=== PATIENT | female | born 1945 | race Caucasian/White ===

== ENCOUNTER → 2016-10-01 | Outpatient (CLI) | payer BC ==
[~2016-10-01] MED LIST: ADVIN50/60 INH; ASCO10003 PO; ASPCH81X PO; CHOL1CAP57 PO; CPR500 PO; CYAN10005 PO; FERR325T51 PO; FLUO20CA36 PO; FURO20TA PO; GLIP2.5T11 PO; LOVA20TA4 PO; MCRK20 PO; METF-384 PO; MTR500 PO; MULT-506 PO; POLYSOL OP; SACC250C3 PO; SYN50 PO; TPRSR25 PO
[2016-10-01 15:02] LABS: CHOLESTEROL/HDL RATIO 1.9; THYROID STIMULATING HORMONE 2.5 uIu/ml (0.300-4.500)
[2016-10-02 06:25] LABS: ESTIMATED AVERAGE GLUCOSE 143 mg/dl; HA1C FLAG Normal (Normal)
== END | disposition home or self-care (01) ==
LOC: C.LAB1850 13:35
PROVIDERS: ATTEND Nurse Practitioner Adult Health
DX: E03.9 Hypothyroidism, unspecified (principal); E11.9 Type 2 diabetes mellitus without complications; E78.5 Hyperlipidemia, unspecified

== ENCOUNTER → 2016-11-30 | Outpatient (CLI) | payer BC ==
[2016-11-30 17:12] LABS: THYROID STIMULATING HORMONE 2.79 uIu/ml (0.300-4.500)
== END | disposition home or self-care (01) ==
LOC: C.LAB1850 15:38
PROVIDERS: ATTEND Nurse Practitioner Adult Health
DX: E11.9 Type 2 diabetes mellitus without complications (principal); E03.9 Hypothyroidism, unspecified

== ENCOUNTER → 2017-02-18 | Outpatient (CLI) | payer BC ==
[2017-02-18 13:20] LABS: BASO % 0.6 %; BASO ABS # 0.04 K/uL (0-0.2); COMPLETE YES; EOS % 7.8 %; HEMATOCRIT 33.6 % (37-47); IG% 0.2 %; LYMPH % 23.5 %; LYMPH ABS # 1.54 K/uL (1.2-3.4); MEAN CELL VOLUME 89.6 fL (80-100); MEAN CORPUSCULAR HEMOGLOBIN 28.3 pg (25-34); MEAN CORPUSCULAR HGB CONC 31.5 g/dl (32-36); MEAN PLATELET VOLUME 10.5 fL (7.4-10.4); MONO % 10.2 %; NEUT % 57.7 %; PLATELET COUNT 364 K/uL (130-400); RED BLOOD COUNT 3.75 M/uL (4.2-5.4); WHITE BLOOD COUNT 6.54 K/uL (4.8-10.8)
[2017-02-18 13:34] LABS: URINE APPEARANCE CLEAR (CLEAR); URINE BILIRUBIN NEG (NEG); URINE COLOR YELLOW; URINE NITRITE NEG (NEG); URINE SPECIFIC GRAVITY 1.023 (1.000-1.030); UROBILINOGEN NEG (NEG); ZZUR CULT IF INDIC CLEAN CATCH NO
[2017-02-18 13:43] LABS: MANUAL MICROSCOPIC REQUIRED? NO; REVIEW REQ? NO
[2017-02-18 13:50] LABS: ESTIMATED AVERAGE GLUCOSE 157 mg/dl; HA1C FLAG Normal (Normal)
[2017-02-18 14:16] LABS: URINE TOTAL PROTEIN 9.5 mg/dl (0-11.9)
[2017-02-18 14:17] LABS: BLOOD UREA NITROGEN 21 mg/dl (7-18); BUN/CREATININE RATIO 17.1 (10-20); CALCIUM 9.3 mg/dl (8.5-10.1); CARBON DIOXIDE 25 mmol/L (21-32); CHLORIDE 104 mmol/L (98-107); GLUCOSE 115 mg/dl (70-99); MAGNESIUM 2.3 mg/dl (1.8-2.4); PHOSPHORUS 3.8 mg/dl (2.5-4.9); POTASSIUM 4.7 mmol/L (3.5-5.1); SODIUM 138 mmol/L (136-145)
== END | disposition home or self-care (01) ==
LOC: C.LAB1850 12:06
PROVIDERS: ATTEND Internal Medicine Nephrology
DX: E11.29 Type 2 diabetes mellitus with other diabetic kidney complication (principal); N18.3 Chronic kidney disease, stage 3 (moderate)

== ENCOUNTER → 2017-03-18 | Outpatient (CLI) | payer BC ==
--- NOTE | 2017-03-18 12:10 | DIAGNOSTIC IMAGING REPORT ---
(CHEST) THORAX WITHOUT CLINICAL HISTORY: 71 years-old Female presenting with solitary pulmonary nodule. TECHNIQUE: Multidetector CT imaging of the chest was performed without the use of intravenous contrast. IV contrast: None. COMPARISON: 03/14/2016. CT DOSE: The estimated cumulative dose is 572.46 mGycm. 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 On soft tissue windows, normal thyroid and thoracic inlet. Multiple calcified mediastinal and right hilar lymph nodes likely indicate prior granulomatous disease. No axillary, supraclavicular, hilar, or mediastinal lymphadenopathy. Atherosclerosis of the aortic arch. Normal heart size. Aortic valve and coronary artery calcification. No pericardial or pleural effusion. Bilateral fat-containing Bochdalek hernia. Numerous punctate calcifications throughout the liver and spleen likely indicate prior granulomatous disease. Hyperdensity within the stomach may relate to injection of medication. On lung windows, old calcified granuloma noted in the right lower lobe. Left apical solid 4 mm nodule (series 4 image 42), previously 4 mm. Previously noted right upper lobe nodule has resolved. Few additional punctate nodules. On bone windows, degenerative changes of the thoracic spine. IMPRESSION: 1. Stable 4 mm left upper lobe solid nodule. Follow-up per Fleischner Society 2017 recommendations below. 2. Interval resolution of right upper lobe nodule. 3. Evidence of old granulomatous disease. 4. Hiatal hernia. Please refer to below summary of Fleischner criteria recommendations for follow-up of incidental CT nodules (Rosita Phelan, Guidelines for management of small pulmonary nodules detected on CT scans: A statement from the Fleischner Society, Radiology 237: [phone].) SOLID NODULES Solitary nodule size: <6 mm * Low risk patients: no follow-up needed * high risk patients: optional CT at 12 months Solitary nodule size: 6-8 mm * Low risk patients: follow-up at 6-12 months, then consider further follow-up at 18-24 months * high risk patients: initial follow-up CT at 6-12 months and then at 18-24 months if no change Solitary nodule size: >8 mm * either low or high risk patients - consider follow-up CT at 3 months, and/or CT-PET, and/or biopsy Multiple nodules size: <6 mm * Low risk patients: no routine follow-up * high risk patients: optional CT at 12 months Multiple nodules size: 6-8 mm * Low risk patients: follow-up at 3-6 months, then consider further follow-up at 18-24 months * high risk patients: follow-up at 3-6 months, then at 18-24 months if no change Multiple nodules size: >8 mm * Low risk patients: follow-up at 3-6 months, then consider further follow-up at 18-24 months * high risk patients: follow-up at 3-6 months, then at 18-24 months if no change Note: newly detected indeterminate nodule in persons 35 years of age or older. * Low risk patients: minimal or absent history of smoking and/or other known risk factors * high risk patients: history of smoking or of other known risk factors (e.g. first degree relative with lung cancer, or exposure to asbestos, radon, uranium) * if a nodule up to 8 mm is partly solid or is ground glass further follow-up is required after 24 months to exclude possible slow growing adenocarcinoma ([facility]URA) SUBSOLID NODULES Solitary pure ground-glass nodule * nodule size <6 mm - no CT follow-up required * nodule size >=6 mm - follow-up CT at 6-12 months, then every 2 years until 5 years Solitary part-solid nodule * nodule size <6 mm - no CT follow-up required * nodule size >=6 mm - follow-up CT at 3-6 months. If unchanged, and solid component remains <6 mm, then annual follow-up for 5 years Multiple subsolid nodules * nodule size <6 mm - follow-up CT at 3-6 months, consider further follow-up at 2 and 4 years if stable * nodule size >=6 mm - follow-up CT at 3-6 months, subsequent management based on the most suspicious nodule(s) Electronically signed by: Gera Fontanez M.D. 03/18/2017 12:09 PM Dictated Date/Time: 03/18/2017 12:01 PM
== END | disposition home or self-care (01) ==
LOC: C.CTS 10:05
PROVIDERS: ATTEND Nurse Practitioner Family
DX: R91.1 Solitary pulmonary nodule (principal); K44.9 Diaphragmatic hernia without obstruction or gangrene

== ENCOUNTER → 2017-04-20 | Outpatient (CLI) | payer BC ==
[2017-04-20 15:53] LABS: BLOOD UREA NITROGEN 20 mg/dl (7-18); BUN/CREATININE RATIO 16.5 (10-20); CALCIUM 9.6 mg/dl (8.5-10.1); CARBON DIOXIDE 25 mmol/L (21-32); CHLORIDE 107 mmol/L (98-107); GLUCOSE 151 mg/dl (70-99); POTASSIUM 4.7 mmol/L (3.5-5.1); SODIUM 139 mmol/L (136-145)
[2017-04-20 16:04] LABS: THYROID STIMULATING HORMONE 0.127 uIu/ml (0.300-4.500)
== END | disposition home or self-care (01) ==
LOC: C.LAB1850 14:41
PROVIDERS: ATTEND Nurse Practitioner Family
DX: N18.3 Chronic kidney disease, stage 3 (moderate) (principal); E03.9 Hypothyroidism, unspecified

== ENCOUNTER → 2017-10-21 | Outpatient (CLI) | payer BC ==
--- NOTE | 2017-10-21 13:23 | DIAGNOSTIC IMAGING REPORT ---
LUMBAR SPINE 5 VIEWS HISTORY: Low back pain. Sciatica, unspecified laterality COMPARISON: Lumbar spine 01/15/2016. FINDINGS: There is no fracture. 4 mm of anterolisthesis of L4 and L5, unchanged. Mild disc space narrowing at L4-L5 and moderate to space narrowing at L5-S1. Moderate to severe facet degenerative changes within the lower lumbar spine. IMPRESSION: 1. No acute fractures within the lumbar spine. 2. Stable grade I anterolisthesis of L4 on L5. 3. Degenerative disc disease and facet arthropathy again noted in the lower lumbar spine Electronically signed by: Tony Kimbrough M.D. 10/21/2017 1:22 PM Dictated Date/Time: 10/21/2017 1:19 PM
== END | disposition home or self-care (01) ==
LOC: C.RAD1850 12:59
PROVIDERS: ATTEND Nurse Practitioner Family
DX: M51.16 Intervertebral disc disorders with radiculopathy, lumbar region (principal)

== ENCOUNTER → 2017-11-12 | Outpatient (CLI) | payer BC ==
[2017-11-12 10:40] LABS: ALBUMIN 3.6 gm/dl (3.4-5.0); BLOOD UREA NITROGEN 27 mg/dl (7-18); CALCIUM 9.3 mg/dl (8.5-10.1); CARBON DIOXIDE 25 mmol/L (21-32); CREATININE 1.33 mg/dl (0.60-1.20); GLUCOSE 147 mg/dl (70-99); POTASSIUM 4.8 mmol/L (3.5-5.1); SODIUM 135 mmol/L (136-145)
[2017-11-12 10:41] LABS: PHOSPHORUS 3.7 mg/dl (2.5-4.9)
[2017-11-12 10:53] LABS: HEMOGLOBIN A1C 7.1 % (4.5-5.6)
[2017-11-12 10:53] LABS: BASO % 0.4 %; BASO ABS # 0.03 K/uL (0-0.2); EOS % 6.8 %; EOS ABS # 0.56 K/uL (0-0.5); HEMATOCRIT 37.3 % (37-47); HEMOGLOBIN 12.4 g/dL (12.0-16.0); IG# 0.02 K/uL (0.00-0.02); LYMPH % 19.1 %; LYMPH ABS # 1.57 K/uL (1.2-3.4); MEAN CELL VOLUME 89.7 fL (80-100); MEAN CORPUSCULAR HEMOGLOBIN 29.8 pg (25-34); MEAN CORPUSCULAR HGB CONC 33.2 g/dl (32-36); MEAN PLATELET VOLUME 10.3 fL (7.4-10.4); MONO % 7.5 %; MONO ABS # 0.62 K/uL (0.11-0.59); NEUT ABS # 5.42 K/uL (1.4-6.5); PLATELET COUNT 333 K/uL (130-400); RED CELL DISTRIBUTION WIDTH SD 41.6 fL (36.4-46.3); WHITE BLOOD COUNT 8.22 K/uL (4.8-10.8)
== END | disposition home or self-care (01) ==
LOC: C.LAB1850 08:58
PROVIDERS: ATTEND Internal Medicine Nephrology
DX: N18.3 Chronic kidney disease, stage 3 (moderate) (principal); E78.5 Hyperlipidemia, unspecified; I51.7 Cardiomegaly; I89.0 Lymphedema, not elsewhere classified

== ENCOUNTER → 2018-01-10 | Outpatient (CLI) | payer BC ==
[2018-01-10 12:17] LABS: BASO % 0.3 %; BASO ABS # 0.03 K/uL (0-0.2); EOS % 6.4 %; EOS ABS # 0.55 K/uL (0-0.5); HEMATOCRIT 38.4 % (37-47); HEMOGLOBIN 12.5 g/dL (12.0-16.0); IG# 0.02 K/uL (0.00-0.02); LYMPH % 21.3 %; LYMPH ABS # 1.84 K/uL (1.2-3.4); MEAN CELL VOLUME 88.9 fL (80-100); MEAN CORPUSCULAR HEMOGLOBIN 28.9 pg (25-34); MEAN CORPUSCULAR HGB CONC 32.6 g/dl (32-36); MEAN PLATELET VOLUME 9.5 fL (7.4-10.4); MONO % 7.5 %; MONO ABS # 0.65 K/uL (0.11-0.59); NEUT % 64.3 %; NEUT ABS # 5.54 K/uL (1.4-6.5); PLATELET COUNT 317 K/uL (130-400); RED CELL DISTRIBUTION WIDTH CV 13.5 % (11.5-14.5); RED CELL DISTRIBUTION WIDTH SD 44.4 fL (36.4-46.3); WHITE BLOOD COUNT 8.63 K/uL (4.8-10.8)
[2018-01-10 12:54] LABS: ALBUMIN 3.7 gm/dl (3.4-5.0); BLOOD UREA NITROGEN 28 mg/dl (7-18); CALCIUM 9.7 mg/dl (8.5-10.1); CARBON DIOXIDE 27 mmol/L (21-32); CREATININE 1.21 mg/dl (0.60-1.20); GLUCOSE 125 mg/dl (70-99); POTASSIUM 4.4 mmol/L (3.5-5.1); SODIUM 139 mmol/L (136-145)
[2018-01-10 13:06] LABS: PHOSPHORUS 3.5 mg/dl (2.5-4.9)
== END | disposition home or self-care (01) ==
LOC: C.LAB1850 11:14
PROVIDERS: ATTEND Nurse Practitioner Adult Health
DX: N18.3 Chronic kidney disease, stage 3 (moderate) (principal); E03.9 Hypothyroidism, unspecified

== ENCOUNTER → 2018-03-18 | Outpatient (CLI) | payer BC ==
[2018-03-19 06:53] LABS: HEMOGLOBIN A1C 7.6 % (4.5-5.6)
== END | disposition home or self-care (01) ==
LOC: C.LAB1850 16:03
PROVIDERS: ATTEND Nurse Practitioner Adult Health
DX: E11.29 Type 2 diabetes mellitus with other diabetic kidney complication (principal); E03.9 Hypothyroidism, unspecified

== ENCOUNTER 2021-05-24 19:24 | Observation (INO) ==
[2021-05-24] MEDS ORDERED: ONDANSETRON INJ 2 MG/ML 2 ML VIAL IV STA (20:22)
[2021-05-24] MEDS ORDERED: SODIUM CHLORIDE 0.9% 500 ML IV SCH (20:30)
[2021-05-24] MEDS ORDERED: SODIUM CHLORIDE 0.9% 1000ML 1,000 ML IV SCH (20:30)
[2021-05-24 20:49] LABS: Basophils # (auto) 0.01 K/uL (0-0.2); Basophils % (auto) 0.1 %; Hematocrit (blood only) 39.9 % (37-47); Hemoglobin 13.1 g/dL (12.0-16.0); Immature Granulocytes # (auto) 0.06 K/uL (0.00-0.02); Immature Granulocytes % (auto) 0.3 %; Lymphocytes # (auto) 1.31 K/uL (1.2-3.4); Lymphocytes % (auto) 6.9 %; Mean Corpuscular Hemoglobin 29.7 pg (25-34); Mean Corpuscular Hgb Conc 32.8 g/dL (32-36); Mean Corpuscular Volume 90.5 fL (80-100); Mean Platelet Volume 9.5 fL (7.4-10.4); Monocytes # (auto) 0.65 K/uL (0.11-0.59); Monocytes % (auto) 3.4 %; Neutrophils # (auto) 17.02 K/uL (1.4-6.5); Neutrophils % (auto) 89.3 %; Platelet Count 260 K/uL (130-400); RDW Coefficient of Variation 13.6 % (11.5-14.5); RDW Standard Deviation 45.1 fL (36.4-46.3); Red Blood Count 4.41 M/uL (4.2-5.4); White Blood Count 19.05 K/uL (4.8-10.8)
[2021-05-24 21:07] LABS: Alanine Aminotransferase 17 U/L (12-78); Albumin Level 3.2 gm/dl (3.4-5.0); Aspartate Aminotransferase 16 U/L (15-37); BUN Creatinine Ratio 15.9 (10-20); Blood Urea Nitrogen 22 mg/dl (7-18); Carbon Dioxide 26 mmol/L (21-32); Chloride 102 mmol/L (98-107); Creatinine Clr Calc Pharmacy 40.5 ml/min; Est GFR (African American) 43.4 ml/min; Est GFR (Non-African American) 37.4 ml/min; Glucose 157 mg/dl (70-99); Magnesium 1.8 mg/dl (1.8-2.4); Potassium 3.8 mmol/L (3.5-5.1); Sodium 135 mmol/L (136-145)
[2021-05-24 21:18] LABS: Albumin Globulin Ratio 0.9 (0.9-2); Alkaline Phosphatase 56 U/L (45-117); Bilirubin,Total 0.4 mg/dl (0.2-1); Globulin 3.7 gm/dl (2.5-4.0); Thyroid Stimulating Hormone 0.682 uIu/ml (0.300-4.500); Total Protein 6.9 gm/dl (6.4-8.2); Troponin I < 0.015 ng/ml (0-0.045)
--- NOTE | 2021-05-24 21:19 | XRay Report ---
XR chest 1V portable HISTORY: 75 years-old Female weakness acute weakness COMPARISON: Chest CT 05/12/2018, chest radiographs 03/30/2016 TECHNIQUE: Portable AP view of the chest FINDINGS: Cardiac silhouette is enlarged. Calcified plaque of the thoracic aorta. Calcified subcarinal lymph no gisel with calcified pulmonary granulomata. No pneumothorax, pleural effusion or overt pulmonary edema. Hiatal hernia. Degenerative changes of the shoulders and spine. IMPRESSION: 1. Cardiomegaly without pulmonary edema. 2. Prior granulomatous disease. 3. Hiatal hernia. ACT 112: Negative or not required by law. The above report was generated using voice recognition software. It may contain grammatical, syntax o r spelling errors. Electronically signed by: Srinivas Kent M.D. 05/24/2021 9:17 PM
--- NOTE | 2021-05-24 22:12 | CT Scan Report ---
ABDOMEN AND PELVIS CT WITHOUT CONTRAST CT DOSE: 999.88 mGy.cm HISTORY: Acute vomiting with left lower quadrant abdominal pain vomting, LLQ abd pain TECHNIQUE: Multiaxial CT images of the abdomen and pelvis were performed without contrast. A dose lo wering technique was utilized adhering to the principles of ALARA. COMPARISON STUDY: CT abdomen and pelvis 04/09/2016 FINDINGS: Clear lung bases. No pneumatosis or pneumoperitoneum. Coronary artery calcifications. Trace pericardial effusion. Calcified granulomata of the liver and spleen. Hepatomegaly with hepatic steat osis. Unremarkable gallbladder, pancreas and adrenal glands. Nonspecific bilateral perinephric stranding. No renal or ureteral calculi or hydronephrosis. Mild uri nary bladder wall thickening with partial distention. Pelvic floor relaxation with small cystocele an d rectocele. Atherosclerosis of the aorta without aneurysm. No adenopathy. Large hiatal hernia with trace free fluid in the hernia sac. No bowel obstruction. Colonic diverticul osis. Prior partial sigmoid colon resection with colocolonic anastomosis. No CT evidence of acute div erticulitis. Normal appendix. Trace interloop edema involving a few loops of nondilated small bowel w ithin the left midabdomen. No definite bowel wall thickening. No acute fracture. Degenerative changes of the spine, pelvis and hips. IMPRESSION: 1. No bowel obstruction or bowel wall thickening. Normal appendix. 2. Trace interloop edema involving a few loops of small bowel within the left midabdomen are noted. T his finding in conjunction with the patient history of nausea and vomiting is suggestive of a mild no nspecific enteritis. 3. Colonic diverticulosis without CT evidence of acute diverticulitis. 4. Prior partial sigmoid colon resection with colocolonic anastomosis. 5. Large hiatal hernia. 6. Additional findings as above. ACT 112: Negative or not required by law. The above report was generated using voice recognition software. It may contain grammatical, syntax o r spelling errors. Electronically signed by: Srinivas Kent M.D. 05/24/2021 10:10 PM
[2021-05-24 23:38] LABS: Appearance Urine Clear (Clear); Bacteria Urine Automated Negative (Negative); Bilirubin Urine Negative (Negative); Blood Urine Negative (Negative); Color Urine Yellow; Epithelial Cell Urine Auto >30 /lpf (0-5); Glucose Urine UA 3+ (Negative); Ketones Urine 1+ (Negative); Leukocyte Esterase Urine Trace (Negative); Nitrite Urine Negative (Negative); Protein Urine Negative (Negative); Specific Gravity Urine 1.035 (1.000-1.030); Urobilinogen Urine Negative (Negative); WBC Urine Automated >30 /hpf (0-5)
[2021-05-24] MEDS ORDERED: cefTRIAXone SODIUM 2,000 MG/70 ML BAG IV STA (23:50)
--- NOTE | 2021-05-25 00:19 | Emergency Department Note ---
Impression & Plan Vomiting, Weakness, Leukocytosis, Acute UTI (urinary tract infection), Enteritis ED Provider Note INFORMANT: Patient and ED PROVIDER(S): Dell Chand MD CHIEF COMPLAINT: Illness PLAN: Disposition: Admitted Condition: Good Outpatient prescription management: none Referral: None MEDICAL DECISION MAKING: Patient presented feeling generally ill. She had a work-up obtained. CT imaging shows an enteritis. She had a marked leukocytosis on CBC with left shift on differential. Chemistry panel showed some mild dehydration. Troponin is negative. Chest x-ray did not reveal any acute findings. Urinalysis was somewhat concerning for infection. Patient was hydrated. She was treated with Zofran. Patient was given IV Rocephin. The patient was very unsteady on her feet and generally weak when she was ambulated to the bathroom. She and her feel comfortable going up home at this point and with the leukocytosis and findings on her work-up I believe further management in the hospital is appropriate. Consultation was made with Dr. Nilay Ozuna of the [facility] service. Patient was evaluated in the ER for further management. Triage Nursing notes reviewed and agree them. Vital Signs: reviewed and remarkable for no significant abnormalities Differential diagnosis: Infection, dehydration, metabolic abnormality, hypo/hyperglycemia, electrolyte disturbance, anemia, hypoxia, cardiac sources, intracerebral event, toxicologic, neurologic, as well as other pathologies. Diagnostics interpreted by me: EC Lead ECG performed and revealed Normal sinus rhythym at 82, normal Pollock, QRS normal. No elevation or depression. No PACs or PVCs Cardiac Monitoring: Cardiac monitoring ordered by me: The patient was placed on continuous cardiac monitoring and observed. It revealed a normal sinus rhythm at 84 beats per minute without ectopy or evidence of dysrhythmia. Imaging studies: CT scan and chest x-ray as above. I refer you to the EMR for further details. HPI: The patient is a 75 year old female who presents to the Emergency Room with complaints of illness. This started around 2:00 this morning and is persisting. The patient also notes the following associated symptoms, generalized weakness, vomiting x1, nausea, chills, fatigue and extreme thirst, very mild lower abdominal discomfort. The patient notes her blood sugar has been fluctuating.. The patient has found no relieving factors. Current pain is rated as 2/10. Patient is vaccinated against COVID-19. Pt denies LOC, headache, fevers, diaphoresis, visual changes, neck pain, chest pain, breathing difficulties, back pain, melena, hematochezia, urinary symptoms, numbness, lymphadenopathy, rash, or other complaints. ROS: See above HPI for pertinent positives & negatives. A total of 10 systems reviewed and were otherwise negative. PAST MEDICAL HISTORY:See Below , diabetes PAST SURGICAL HISTORY:See Below, FAMILY HISTORY:See Below SOCIAL HISTORY:See Below, HOME MEDICATIONS:See Below ALLERGIES:See Below VITALS:See Below PHYSICAL EXAMINATION: GENERAL: Awake, alert, mildly ill-appearing, in no distress HENT: Normocephalic, atraumatic. Oropharynx unremarkable. EYES: Normal conjunctiva. Sclera non-icteric. NECK: Inspection normal. Non-tender. Supple. No nuchal rigidity. FROM. No masses. RESPIRATORY: Clear to auscultation. No wheezes. No rales. Normal respiratory effort. CARDIAC: Normal rate. Normal rhythm. No murmurs. No rubs. Extremities warm and well perfused. Pulses equal. No JVD. GI: Soft, non-distended. Very mild suprapubic tenderness to palpation. No rebound or guarding. No masses. RECTAL: Deferred. MUSCULOSKELETAL: Atraumatic. Chest examination reveals no tenderness. The back is symmetrical on inspection without obvious abnormality. There is no CVA tenderness to palpation. No joint edema. LOWER EXTREMITIES: Calves are equal size bilaterally and non-tender. No edema. No discoloration. NEURO: Normal sensorium. No focal sensory or motor deficits noted, generally weak. SKIN: No rash or jaundice noted. Dell Chand MD Past Med/Surg History Medical History (Updated 05/25/21 @ 00:04 by Dell Chand MD) Hypothyroidism Retina disorder Sensorineural hearing loss (SNHL) of both ears Stage III chronic kidney disease Type 2 diabetes mellitus with renal complication Surgical History History of colectomy History of tonsillectomy History of tooth extraction History of tubal ligation Family History Mother Diabetes Grandfather Prostate cancer Denies family history of Ovarian cancer Myocardial infarction Breast cancer Colorectal cancer Social History Smoking Status: Never smoker Second Hand Exposure: Yes; Hx Alcohol Use: Yes Alcohol type: hard liquor Alcohol Intake Frequency: Monthly or Less Hx Substance Use: No Preferred Language: Comoran Communication Ability: Effective Visual Impairment: No Limitations Hearing Ability: Normal marital status: Current Living Situation: Spouse and Family Current Living Situation Comment: w/ spuse and son and family current occupational status: retired Feels Safe at Home: Yes Childhood Exposure to Second-Hand Smoke: Yes Dental Care, Regularly: Yes Physical Activity Frequency: Other Physical Activity Frequency Comment: irregular exercise Seatbelt Use: always Sunscreen Use: No Do you think of yourself as: straight/heterosexual Allergies Allergies Allergy/AdvReac Type Severity Reaction Status Date / Time prednisone Allergy Difficulty Unverified 05/24/21 20:43 Breathing/ Rash ciprofloxacin AdvReac Intermediate Nausea and Verified 05/24/21 20:43 vomiting metronidazole AdvReac Intermediate Nausea and Verified 05/24/21 20:43 vomiting Home Meds Home Medications Medication Instructions Recorded Confirmed polyvinyl alcohol 1.4 % eye drops 1 drp OP UD ml 03/09/19 05/24/21 cholecalciferol (vitamin D3) 25 1,000 units PO QDD cap 04/17/19 05/24/21 mcg (1,000 unit) capsule cyanocobalamin (vitamin B-12) 1,000 mcg PO QAM tab 04/17/19 05/24/21 1,000 mcg tablet ferrous sulfate 325 mg (65 mg 325 mg PO QAM tab 04/17/19 05/24/21 iron) tablet,delayed release insulin aspart U-100 100 unit/mL 2 - 4 unit SUBCUT WM ml 10/18/20 05/24/21 (3 mL) subcutaneous pen (Novolog Flexpen U-100 Insulin aspart) insulin degludec 100 unit/mL (3 16 - 18 unit SQ DAILY ml 10/18/20 05/24/21 mL) subcutaneous pen (Tresiba FlexTouch U-100 insulin) fexofenadine 60 mg-pseudoephedrine 1 tab PO Q12H PRN 11/14/20 05/24/21 ER 120 mg tablet,ext.release,12 hr (Genia-D 12 Hour) One-A-Day Women's 50 Plus 1 tab PO QAM 05/24/21 05/24/21 amlodipine 5 mg tablet 5 mg PO QAM 05/24/21 05/24/21 ascorbic acid (vitamin C) 500 mg 500 mg PO QAM 05/24/21 05/24/21 tablet aspirin 81 mg tablet,delayed 81 mg PO QAM 05/24/21 05/24/21 release (Aspirin Low Dose) empagliflozin 25 mg tablet 25 mg PO QAM 05/24/21 05/24/21 (Jardiance) levothyroxine 25 mcg tablet 25 mcg PO QAM 05/24/21 05/24/21 simvastatin 10 mg tablet 10 mg PO QAM 05/24/21 05/24/21 Previous Rx's Medication Instructions Recorded Novofine 32 32 gauge x 1/4" needle #200 ea NS 07/07/19 (pen needle, diabetic) OneTouch Ultra Blue Test Strip #300 ea NS 04/25/20 (blood sugar diagnostic) metformin 500 mg tablet 1,000 mg PO BID 90 Days #360 tab 09/13/20 fluticasone 250 mcg-salmeterol 50 1 inh INHALATION BID #180 ea 09/23/20 mcg/dose blistr powdr for inhalation (Wixela Inhub) ketoconazole 2 % topical cream 1 applic TOPICAL BID PRN #1 g 09/23/20 flash glucose sensor (FreeStyle #1 ea 10/22/20 Paige 2 Sensor) FreeStyle Paige 2 [place] (flash #1 ea NS 12/31/20 glucose scanning reader) apixaban 5 mg tablet 5 mg PO BID #180 tab 04/08/21 metoprolol succinate 50 mg 50 mg PO HS #90 tab 05/02/21 tablet,extended release 24 hr Results & Data (ED) Vital Signs Vital Signs - 24 hr 05/24/21 19:27 05/24/21 21:00 05/24/21 21:16 Temperature 37.1 C Temperature Source Temporal Artery Scan Pulse Rate 88 Pulse Rate [Finger] 79 Pulse Rate from SpO2 Sensor Respiratory Rate 20 20 Blood Pressure 116/65 Blood Pressure [Left Arm] 110/55 L Blood Pressure Mean 82 Blood Pressure Mean [Left Arm] 73 Blood Pressure Position Sitting Pulse Oximetry 95 94 94 Oxygen Delivery Method Room Air Room Air Room Air Oxygen Flow Rate Sepsis Recent Fever Within 48 Hours No Sepsis New/Unexplained Change in Mental Status N/A Sepsis Action Taken by Nursing No Action Required 05/24/21 21:32 05/24/21 22:00 05/24/21 22:30 Temperature Temperature Source Pulse Rate 84 87 87 Pulse Rate [Finger] Pulse Rate from SpO2 Sensor 84 87 89 Respiratory Rate 30 H 20 26 H Blood Pressure 134/76 139/69 Blood Pressure [Left Arm] Blood Pressure Mean 95 92 Blood Pressure Mean [Left Arm] Blood Pressure Position Pulse Oximetry 93 91 Oxygen Delivery Method Oxygen Flow Rate Sepsis Recent Fever Within 48 Hours Sepsis New/Unexplained Change in Mental Status Sepsis Action Taken by Nursing 05/24/21 23:00 05/24/21 23:30 05/25/21 00:02 Temperature Temperature Source Pulse Rate 84 Pulse Rate [Finger] Pulse Rate from SpO2 Sensor 85 82 79 Respiratory Rate 28 H 24 23 Blood Pressure 112/62 110/59 L Blood Pressure [Left Arm] Blood Pressure Mean 78 76 Blood Pressure Mean [Left Arm] Blood Pressure Position Pulse Oximetry 92 96 95 Oxygen Delivery Method Nasal Cannula Nasal Cannula Oxygen Flow Rate 2 2 Sepsis Recent Fever Within 48 Hours Sepsis New/Unexplained Change in Mental Status Sepsis Action Taken by Nursing Laboratory Data Result diagrams: 05/24/21 20:37 05/24/21 20:37 Lab Results 05/24/21 05/24/21 05/24/21 Range/Units 20:37 20:37 20:56 WBC 19.05 H (4.8-10.8) K/uL RBC 4.41 (4.2-5.4) M/uL Hgb 13.1 (12.0-16.0) g/dL Hct 39.9 (37-47) % MCV 90.5 (80-100) fL MCH 29.7 (25-34) pg MCHC 32.8 (32-36) g/dL RDW Std Deviation 45.1 (36.4-46.3) fL RDW Coeff of Juan 13.6 (11.5-14.5) % Plt Count 260 (130-400) K/uL MPV 9.5 (7.4-10.4) fL Immature Gran % (Auto) 0.3 % Neut % (Auto) 89.3 % Lymph % (Auto) 6.9 % Parker % (Auto) 3.4 % Eos % (Auto) 0.0 % Baso % (Auto) 0.1 % Neut # (Auto) 17.02 H (1.4-6.5) K/uL Lymph # (Auto) 1.31 (1.2-3.4) K/uL Parker # (Auto) 0.65 H (0.11-0.59) K/uL Eos # (Auto) 0.00 (0-0.5) K/uL Baso # (Auto) 0.01 (0-0.2) K/uL Immature Gran # (Auto) 0.06 H (0.00-0.02) K/uL Sodium 135 L (136-145) mmol/L Potassium 3.8 (3.5-5.1) mmol/L Chloride 102 (98-107) mmol/L Carbon Dioxide 26 (21-32) mmol/L Anion Gap 7.0 (3-11) BUN 22 H (7-18) mg/dl Creatinine 1.36 H (0.6-1.2) mg/dl Est Cr Clr Drug Dosing 40.5 ml/min Est GFR ( Amer) 43.4 ml/min Est GFR (Non-Af Amer) 37.4 ml/min BUN/Creatinine Ratio 15.9 (10-20) Glucose 157 H (70-99) mg/dl Calcium 9.0 (8.5-10.1) mg/dl Magnesium 1.8 (1.8-2.4) mg/dl Total Bilirubin 0.4 (0.2-1) mg/dl AST 16 (15-37) U/L ALT 17 (12-78) U/L Alkaline Phosphatase 56 (45-117) U/L Troponin I < 0.015 (0-0.045) ng/ml Total Protein 6.9 (6.4-8.2) gm/dl Albumin 3.2 L (3.4-5.0) gm/dl Globulin 3.7 (2.5-4.0) gm/dl Albumin/Globulin Ratio 0.9 (0.9-2) TSH 0.682 (0.300-4.500) uIu/ml Urine Color Urine Appearance (Clear) Urine pH (4.5-7.5) Ur Specific Paradis (1.000-1.030) Urine Protein (Negative) Urine Glucose (UA) (Negative) Urine Ketones (Negative) Urine Blood (Negative) Urine Nitrite (Negative) Urine Bilirubin (Negative) Urine Urobilinogen (Negative) Ur Leukocyte Esterase (Negative) Urine WBC (Auto) (0-5) /hpf Urine RBC (Auto) (0-4) /hpf U Hyaline Cast (Auto) (0-5) /lpf U Epithel Cells (Auto) (0-5) /lpf Urine Bacteria (Auto) (Negative) COVID-19 Eval Order Covid19 at [facility] SARS-CoV-2 (PCR) (Negative) 05/24/21 05/24/21 Range/Units 20:56 22:55 WBC (4.8-10.8) K/uL RBC (4.2-5.4) M/uL Hgb (12.0-16.0) g/dL Hct (37-47) % MCV (80-100) fL MCH (25-34) pg MCHC (32-36) g/dL RDW Std Deviation (36.4-46.3) fL RDW Coeff of Juan (11.5-14.5) % Plt Count (130-400) K/uL MPV (7.4-10.4) fL Immature Gran % (Auto) % Neut % (Auto) % Lymph % (Auto) % Parker % (Auto) % Eos % (Auto) % Baso % (Auto) % Neut # (Auto) (1.4-6.5) K/uL Lymph # (Auto) (1.2-3.4) K/uL Parker # (Auto) (0.11-0.59) K/uL Eos # (Auto) (0-0.5) K/uL Baso # (Auto) (0-0.2) K/uL Immature Gran # (Auto) (0.00-0.02) K/uL Sodium (136-145) mmol/L Potassium (3.5-5.1) mmol/L Chloride (98-107) mmol/L Carbon Dioxide (21-32) mmol/L Anion Gap (3-11) BUN (7-18) mg/dl Creatinine (0.6-1.2) mg/dl Est Cr Clr Drug Dosing ml/min Est GFR ( Amer) ml/min Est GFR (Non-Af Amer) ml/min BUN/Creatinine Ratio (10-20) Glucose (70-99) mg/dl Calcium (8.5-10.1) mg/dl Magnesium (1.8-2.4) mg/dl Total Bilirubin (0.2-1) mg/dl AST (15-37) U/L ALT (12-78) U/L Alkaline Phosphatase (45-117) U/L Troponin I (0-0.045) ng/ml Total Protein (6.4-8.2) gm/dl Albumin (3.4-5.0) gm/dl Globulin (2.5-4.0) gm/dl Albumin/Globulin Ratio (0.9-2) TSH (0.300-4.500) uIu/ml Urine Color Yellow Urine Appearance Clear (Clear) Urine pH 5.0 (4.5-7.5) Ur Specific Paradis 1.035 H (1.000-1.030) Urine Protein Negative (Negative) Urine Glucose (UA) 3+ H (Negative) Urine Ketones 1+ H (Negative) Urine Blood Negative (Negative) Urine Nitrite Negative (Negative) Urine Bilirubin Negative (Negative) Urine Urobilinogen Negative (Negative) Ur Leukocyte Esterase Trace H (Negative) Urine WBC (Auto) >30 H (0-5) /hpf Urine RBC (Auto) 5-10 H (0-4) /hpf U Hyaline Cast (Auto) 1-5 (0-5) /lpf U Epithel Cells (Auto) >30 H (0-5) /lpf Urine Bacteria (Auto) Negative (Negative) COVID-19 Eval Order SARS-CoV-2 (PCR) NEGATIVE (Negative) Administered Medications Sodium Chloride (Nss 1000ml) 1,000 mls @ 125 mls/hr IV .Q8H JORGE Stop: 05/25/21 04:29 Last Admin: 05/24/21 21:36 Dose: 125 mls/hr Documented by: [id number] Ceftriaxone Sodium (Rocephin) 2,000 mg in 70 mls @ 140 mls/hr IV NOW STA Stop: 05/25/21 00:19 Last Admin: 05/25/21 00:05 Dose: 140 mls/hr Documented by: [id number] Discontinued Medications Sodium Chloride (Nss) 500 mls @ 999 mls/hr IV .Q31M JORGE Stop: 05/24/21 21:00 Last Infusion: 05/24/21 21:28 Dose: 0 mls/hr Documented by: [id number] Admin: 05/24/21 20:48 Dose: 999 mls/hr Documented by: [id number] Ondansetron HCl (Ondansetron Inj 2 Mg/Ml 2 Ml Vial) 4 mg IV NOW STA Stop: 05/24/21 20:23 Last Admin: 05/24/21 20:44 Dose: 4 mg Documented by: [id number] Imaging Data Radiologist's Impression: Chest X-Ray 05/24/21 20:22 XR chest 1V portable HISTORY: 75 years-old Female weakness acute weakness COMPARISON: Chest CT 05/12/2018, chest radiographs 03/30/2016 TECHNIQUE: Portable AP view of the chest FINDINGS: Cardiac silhouette is enlarged. Calcified plaque of the thoracic aorta. Calcified subcarinal lymph nodes with calcified pulmonary granulomata. No pneumothorax, pleural effusion or overt pulmonary edema. Hiatal hernia. Degenerative changes of the shoulders and spine. IMPRESSION: 1. Cardiomegaly without pulmonary edema. 2. Prior granulomatous disease. 3. Hiatal hernia. ACT 112: Negative or not required by law. The above report was generated using voice recognition software. It may contain grammatical, syntax or spelling errors. Electronically signed by: Srinivas Kent M.D. 05/24/2021 9:17 PM Abdomen/Pelvis CT 05/24/21 20:[address] WITHOUT CONTRAST CT DOSE: 999.88 mGy.cm HISTORY: Acute vomiting with left lower quadrant abdominal pain vomting, LLQ abd pain TECHNIQUE: Multiaxial CT images of the abdomen and pelvis were performed without contrast. A dose lowering technique was utilized adhering to the principles of ALARA. COMPARISON STUDY: CT abdomen and pelvis 04/09/2016 FINDINGS: Clear lung bases. No pneumatosis or pneumoperitoneum. Coronary artery calcifications. Trace pericardial effusion. Calcified granulomata of the liver and spleen. Hepatomegaly with hepatic steatosis. Unremarkable gallbladder, pancreas and adrenal glands. Nonspecific bilateral perinephric stranding. No renal or ureteral calculi or hydronephrosis. Mild urinary bladder wall thickening with partial distention. Pelvic floor relaxation with small cystocele and rectocele. Atherosclerosis of t he aorta without aneurysm. No adenopathy. Large hiatal hernia with trace free fluid in the hernia sac. No bowel obstruction. Colonic diverticulosis. Prior partial sigmoid colon resection with colocolonic anastomosis. No CT evidence of acute diverticulitis. Normal appendix. Trace interloop edema involving a few loops of nondilated small bowel within the left midabdomen. No definite bowel wall thickening. No acute fracture. Degenerative changes of the spine, pelvis and hips. IMPRESSION: 1. No bowel obstruction or bowel wall thickening. Normal appendix. 2. Trace interloop edema involving a few loops of small bowel within the left midabdomen are noted. This finding in conjunction with the patient history of nausea and vomiting is suggestive of a mild nonspecific enteritis. 3. Colonic diverticulosis without CT evidence of acute diverticulitis. 4. Prior partial sigmoid colon resection with colocolonic anastomosis. 5. Large hiatal hernia. 6. Additional findings as above. ACT 112: Negative or not required by law. The above report was generated using voice recognition software. It may contain grammatical, syntax or spelling errors. Electronically signed by: Srinivas Kent M.D. 05/24/2021 10:10 PM Discharge Plan Visit Data Chief Complaint: Illness Stated Complaint: [id number] ED Provider: Dell Chand Discharge Problem: Vomiting, Weakness, Leukocytosis, Acute UTI (urinary tract infection), Enteritis Forms Stand Alone Forms: [employer] Prescriptions Prescriptions: No Action (DME) pen needle, diabetic [Novofine 32] 32 gauge x 1/4" needle See Dose Instructions .ROUTE .MEDSUPPLY Qty: 200 RF: 3 fluticasone propion-salmeterol [Wixela Inhub] 250-50 mcg/dose blister with device 1 inh inhalation BID Qty: 180 RF: 1 ketoconazole 2 % cream 1 applic topical BID PRN (Reason: rash) Qty: 1 RF: 0 (DME) FreeStyle Paige 2 [place] Misc See Rx Instructions .ROUTE .MEDSUPPLY Qty: 1 RF: 0 apixaban 5 mg tablet 5 mg PO BID Qty: 180 RF: 1 metoprolol succinate 50 mg tablet extended release 24 hr 50 mg PO HS Qty: 90 RF: 1 metformin 500 mg tablet 1,000 mg PO BID 90 Days Qty: 360 RF: 3 (DME) FreeStyle Paige 2 Sensor Kit See Rx Instructions .ROUTE .MEDSUPPLY Qty: 1 RF: 5 fexofenadine-pseudoephedrine [Genia-D 12 Hour] 60-120 mg tablet extended release 12 hr 1 tab PO Q12H PRN (Reason: Allergy Symptoms) RF: 0 polyvinyl alcohol 1.4 % drops 1 drp OP UD RF: 0 ferrous sulfate 325 mg (65 mg iron) tablet,delayed release (DR/EC) 325 mg PO QAM RF: 0 cyanocobalamin (vitamin B-12) 1,000 mcg tablet 1,000 mcg PO QAM RF: 0 cholecalciferol (vitamin D3) 1,000 unit capsule 1,000 units PO QDD RF: 0 (DME) OneTouch Ultra Blue Test Strip Strip See Dose Instructions .ROUTE .MEDSUPPLY Qty: 300 RF: 3 insulin aspart U-100 [Novolog Flexpen U-100 Insulin] 100 unit/mL (3 mL) insulin pen 2 - 4 unit subcut WM RF: 0 Tresiba FlexTouch U-100 100 unit/mL (3 mL) insulin pen 16 - 18 unit SQ DAILY RF: 0 aspirin [Aspirin Low Dose] 81 mg Tablet,Delayed Release (Dr/Ec) 81 mg PO QAM RF: 0 ascorbic acid (vitamin C) 500 mg Tablet 500 mg PO QAM RF: 0 One-A-Day Women's 50 Plus 1 tab PO QAM RF: 0 simvastatin 10 mg tablet 10 mg PO QAM RF: 0 amlodipine 5 mg tablet 5 mg PO QAM RF: 0 levothyroxine 25 mcg tablet 25 mcg PO QAM RF: 0 Jardiance 25 mg tablet 25 mg PO QAM RF: 0 Referrals Referrals: Regan Salazar III, CRNP [Primary Care Provider] -
--- NOTE | 2021-05-25 00:36 | History & Physical Report ---
Date of Service May 25, 2021 Assessment & Plan (1) Vomiting: Plan: Vomiting/enteritis- Patient had very self-limited symptoms, which have resolved at this time. CT suggest possible mild nonspecific enteritis. Vomiting may be suggestive of early sepsis (2) Enteritis: Plan: See above Suspect patient may have some element of diabetic gastroparesis as well (3) Cellulitis of left lower extremity: Plan: Patient's main issue may be that of cellulitis of left lower extremity. Possibly with early sepsis. Placed on vancomycin IV and Zosyn IV. (4) Type 2 diabetes mellitus with renal complication: Plan: Reduce Levemir from 16-18, down to 12 units subcu daily. Hold Metformin and Jardiance Place on Accu-Cheks before meals and at bedtime with NovoLog coverage per scale (5) Weakness: Plan: When patient is improved, should have PT/OT assessment before discharge (6) Acute UTI (urinary tract infection): Plan: History of recurrent urinary tract infections, but none on record here CT does not show kidney stones. Follow urine culture and sensitivity, question possible yeast infection (7) AF (paroxysmal atrial fibrillation): Plan: Atrial fibrillation/hypertension- Continue apixaban, metoprolol succinate, amlodipine and aspirin (8) Acute kidney injury superimposed on chronic kidney disease: Plan: Creatinine 1.36, with most recent 1.12. Gentle hydration with IV fluids, and recheck laboratories in a.m. (9) Hypoxia: Plan: Hypoxia/asthma- In 91 to 92% range on room air, improved to 96% on 2 L nasal cannula oxygen. Patient has history histoplasmosis We will do CT scan without contrast to further assess Continue inhalers (10) Hypothyroidism: Plan: Continue levothyroxine 25 mcg every morning (11) Hypertension: Plan: See above (12) Dyslipidemia: Plan: Continue simvastatin (13) Asthma: Plan: See above History of Present Illness Chief Complaint: The patient presents to the emergency department with complaint of feeling generally unwell, with fatigue, mild lethargy and her notes a few days of her not being herself. Primary Care Provider: Regan Salazar, III, GABRIELLE The patient is a 75-year-old female with a history clued doing hypothyroidism, SNHL of both ears, CKD stage III, diabetes mellitus, low back pain, pulmonary nodules, LV diastolic dysfunction, LVH, hypertension, history of histoplasmosis, dyslipidemia, diabetic nephropathy, depression, moderate persistent allergic asthma, paroxysmal atrial fibrillation, and UTI. The patient has no specific complaints, other than reporting just not feeling well in general. Her notes this to be a problem over the past few days. She reports that she urinates frequently, but she always has to because she drinks a lot of water due to being diabetic. She reports her blood sugars not been significantly different. She has chronically mildly loose stools, which is unchanged. She denies any chest pain or shortness of breath. Allergies Allergy/AdvReac Type Severity Reaction Status Date / Time prednisone Allergy Difficulty Unverified 05/24/21 20:43 Breathing/ Rash ciprofloxacin AdvReac Intermediate Nausea and Verified 05/24/21 20:43 vomiting metronidazole AdvReac Intermediate Nausea and Verified 05/24/21 20:43 vomiting Home Medications Medication Instructions Recorded Confirmed Type polyvinyl alcohol 1.4 % eye drops 1 drp OP UD ml 03/09/19 05/24/21 History cholecalciferol (vitamin D3) 25 1,000 units PO QDD cap 04/17/19 05/24/21 History mcg (1,000 unit) capsule cyanocobalamin (vitamin B-12) 1,000 mcg PO QAM tab 04/17/19 05/24/21 History 1,000 mcg tablet ferrous sulfate 325 mg (65 mg 325 mg PO QAM tab 04/17/19 05/24/21 History iron) tablet,delayed release Novofine 32 32 gauge x 1/4" needle #200 ea NS 07/07/19 03/17/21 Rx (pen needle, diabetic) OneTouch Ultra Blue Test Strip #300 ea NS 04/25/20 03/17/21 Rx (blood sugar diagnostic) metformin 500 mg tablet 1,000 mg PO BID 90 Days #360 tab 09/13/20 05/24/21 Rx fluticasone 250 mcg-salmeterol 50 1 inh INHALATION BID #180 ea 09/23/20 05/24/21 Rx mcg/dose blistr powdr for inhalation (Wixela Inhub) ketoconazole 2 % topical cream 1 applic TOPICAL BID PRN #1 g 09/23/20 05/24/21 Rx insulin aspart U-100 100 unit/mL 2 - 4 unit SUBCUT WM ml 10/18/20 05/24/21 History (3 mL) subcutaneous pen (Novolog Flexpen U-100 Insulin aspart) insulin degludec 100 unit/mL (3 16 - 18 unit SQ DAILY ml 10/18/20 05/24/21 History mL) subcutaneous pen (Tresiba FlexTouch U-100 insulin) flash glucose sensor (FreeStyle #1 ea 10/22/20 03/17/21 Rx Paige 2 Sensor) fexofenadine 60 mg-pseudoephedrine 1 tab PO Q12H PRN 11/14/20 05/24/21 History ER 120 mg tablet,ext.release,12 hr (Genia-D 12 Hour) FreeStyle Paige 2 [place] (flash #1 ea NS 12/31/20 03/17/21 Rx glucose scanning reader) apixaban 5 mg tablet 5 mg PO BID #180 tab 04/08/21 05/24/21 Rx metoprolol succinate 50 mg 50 mg PO HS #90 tab 05/02/21 05/24/21 Rx tablet,extended release 24 hr One-A-Day Women's 50 Plus 1 tab PO QAM 05/24/21 05/24/21 History amlodipine 5 mg tablet 5 mg PO QAM 05/24/21 05/24/21 History ascorbic acid (vitamin C) 500 mg 500 mg PO QAM 05/24/21 05/24/21 History tablet aspirin 81 mg tablet,delayed 81 mg PO QAM 05/24/21 05/24/21 History release (Aspirin Low Dose) empagliflozin 25 mg tablet 25 mg PO QAM 05/24/21 05/24/21 History (Jardiance) levothyroxine 25 mcg tablet 25 mcg PO QAM 05/24/21 05/24/21 History simvastatin 10 mg tablet 10 mg PO QAM 05/24/21 05/24/21 History Past Med/Surg History Medical History (Updated 05/25/21 @ 01:36 by Nilay Ozuna MD) Hypothyroidism Retina disorder Sensorineural hearing loss (SNHL) of both ears Stage III chronic kidney disease Type 2 diabetes mellitus with renal complication Surgical History History of colectomy History of tonsillectomy History of tooth extraction History of tubal ligation Family History Mother Diabetes Grandfather Prostate cancer Denies family history of Ovarian cancer Myocardial infarction Breast cancer Colorectal cancer Social History Smoking Status: Never smoker Second Hand Exposure: Yes; Hx Alcohol Use: Yes Alcohol type: hard liquor Alcohol Intake Frequency: Monthly or Less Hx Substance Use: No Preferred Language: Latvian Communication Ability: Effective Visual Impairment: No Limitations Hearing Ability: Normal marital status: Current Living Situation: Spouse and Family Current Living Situation Comment: w/ spuse and son and family current occupational status: retired Feels Safe at Home: Yes Childhood Exposure to Second-Hand Smoke: Yes Dental Care, Regularly: Yes Physical Activity Frequency: Other Physical Activity Frequency Comment: irregular exercise Seatbelt Use: always Sunscreen Use: No Do you think of yourself as: straight/heterosexual Review of Systems Review of Systems: The patient denies chest pain, palpitations, shortness of breath, dyspnea on exertion, cough, sore throat, fevers, chills, sweats, nausea, vomiting, diarrhea , constipation, abdominal pain, pelvic pain, blood in urine or stool, dysuria, urinary frequency or urgency, lightheadedness, dizziness, headache, memory loss, loss of consciousness, rash, abnormal bruising or bleeding, focal weakness, numbness or tingling in arms or legs, neck pain, or night sweats. The review of systems is otherwise negative other than for that already noted above, and at least 10 systems have been reviewed. Physical Exam Physical Exam: The patient is awake, alert and oriented 3, well developed and well nourished, normocephalic and atraumatic, lying in bed and in no acute distress. HEENT--PERRL, EOMI, mucous membranes and oropharynx normal. Neck--supple. No JVD. No bruits. Thyroid normal, trachea midline, no adenopathy. Heart--normal S1 and S2. No murmurs, rubs or gallops. Lungs--clear bilaterally, no respiratory distress, no accessory muscle use. Abdomen--normal bowel sounds and soft. Nontender. Nondistended. Mildly obese Extremities/dermatologic-right lower extremity with trace pitting edema. Left lower extremity with trace to 1+ pitting edema, moderate erythema and warmth from just below the knee to including the foot. Groin rash suggestive of yeast noted in skin folds. Neurologic--cranial nerves II through XII grossly intact. Rheumatologic--normal range of motion. Psychiatric--normal affect. Results & Data Results & Data ([facility] [place]) Vital Signs (Past 12 Hours) Vital Signs Temp Pulse Pulse Resp BP BP Pulse Ox 05/25/21 00:02 23 95 05/24/21 23:30 24 110/59 L 96 05/24/21 23:00 84 28 H 112/62 92 05/24/21 22:30 87 26 H 139/69 05/24/21 22:00 87 20 134/76 91 05/24/21 21:32 84 30 H 93 05/24/21 21:16 94 05/24/21 21:00 79 20 110/55 L 94 05/24/21 19:27 98.8 F 88 20 116/65 95 Laboratory Results Laboratory Results WBC 19.05 K/uL (4.8-10.8) H 05/24/21 20:37 RBC 4.41 M/uL (4.2-5.4) 05/24/21 20:37 Hgb 13.1 g/dL (12.0-16.0) 05/24/21 20:37 Hct 39.9 % (37-47) 05/24/21 20:37 MCV 90.5 fL (80-100) 05/24/21 20:37 MCH 29.7 pg (25-34) 05/24/21 20:37 MCHC 32.8 g/dL (32-36) 05/24/21 20:37 RDW Std Deviation 45.1 fL (36.4-46.3) 05/24/21 20:37 RDW Coeff of Juan 13.6 % (11.5-14.5) 05/24/21 20:37 Plt Count 260 K/uL (130-400) 05/24/21 20:37 MPV 9.5 fL (7.4-10.4) 05/24/21 20:37 Immature Gran % (Auto) 0.3 % 05/24/21 20:37 Neut % (Auto) 89.3 % 05/24/21 20:37 Lymph % (Auto) 6.9 % 05/24/21 20:37 Barry % (Auto) 3.4 % 05/24/21 20:37 Eos % (Auto) 0.0 % 05/24/21 20:37 Baso % (Auto) 0.1 % 05/24/21 20:37 Neut # (Auto) 17.02 K/uL (1.4-6.5) H 05/24/21 20:37 Lymph # (Auto) 1.31 K/uL (1.2-3.4) 05/24/21 20:37 Barry # (Auto) 0.65 K/uL (0.11-0.59) H 05/24/21 20:37 Eos # (Auto) 0.00 K/uL (0-0.5) 05/24/21 20:37 Baso # (Auto) 0.01 K/uL (0-0.2) 05/24/21 20:37 Immature Gran # (Auto) 0.06 K/uL (0.00-0.02) H 05/24/21 20:37 Sodium 135 mmol/L (136-145) L 05/24/21 20:37 Potassium 3.8 mmol/L (3.5-5.1) 05/24/21 20:37 Chloride 102 mmol/L (98-107) 05/24/21 20:37 Carbon Dioxide 26 mmol/L (21-32) 05/24/21 20:37 Anion Gap 7.0 (3-11) 05/24/21 20:37 BUN 22 mg/dl (7-18) H 05/24/21 20:37 Creatinine 1.36 mg/dl (0.6-1.2) H 05/24/21 20:37 Est Cr Clr Drug Dosing 40.5 ml/min 05/24/21 20:37 Est GFR ( Amer) 43.4 ml/min 05/24/21 20:37 Est GFR (Non-Af Amer) 37.4 ml/min 05/24/21 20:37 BUN/Creatinine Ratio 15.9 (10-20) 05/24/21 20:37 Glucose 157 mg/dl (70-99) H 05/24/21 20:37 POC Glucose 142 mg/dl (70-99) H 05/25/21 00:26 Lactate 1.1 mmol/L (0.4-2.0) 05/24/21 23:43 Calcium 9.0 mg/dl (8.5-10.1) 05/24/21 20:37 Magnesium 1.8 mg/dl (1.8-2.4) 05/24/21 20:37 Total Bilirubin 0.4 mg/dl (0.2-1) 05/24/21 20:37 AST 16 U/L (15-37) 05/24/21 20:37 ALT 17 U/L (12-78) 05/24/21 20:37 Alkaline Phosphatase 56 U/L (45-117) 05/24/21 20:37 Troponin I < 0.015 ng/ml (0-0.045) 05/24/21 20:37 Total Protein 6.9 gm/dl (6.4-8.2) 05/24/21 20:37 Albumin 3.2 gm/dl (3.4-5.0) L 05/24/21 20:37 Globulin 3.7 gm/dl (2.5-4.0) 05/24/21 20:37 Albumin/Globulin Ratio 0.9 (0.9-2) 05/24/21 20:37 TSH 0.682 uIu/ml (0.300-4.500) 05/24/21 20:37 Urine Color Yellow 05/24/21 22:55 Urine Appearance Clear (Clear) 05/24/21 22:55 Urine pH 5.0 (4.5-7.5) 05/24/21 22:55 Ur Specific [place] 1.035 (1.000-1.030) H 05/24/21 22:55 Urine Protein Negative (Negative) 05/24/21 22:55 Urine Glucose (UA) 3+ (Negative) H 05/24/21 22:55 Urine Ketones 1+ (Negative) H 05/24/21 22:55 Urine Blood Negative (Negative) 05/24/21 22:55 Urine Nitrite Negative (Negative) 05/24/21 22:55 Urine Bilirubin Negative (Negative) 05/24/21 22:55 Urine Urobilinogen Negative (Negative) 05/24/21 22:55 Ur Leukocyte Esterase Trace (Negative) H 05/24/21 22:55 Urine WBC (Auto) >30 /hpf (0-5) H 05/24/21 22:55 Urine RBC (Auto) 5-10 /hpf (0-4) H 05/24/21 22:55 U Hyaline Cast (Auto) 1-5 /lpf (0-5) 05/24/21 22:55 U Epithel Cells (Auto) >30 /lpf (0-5) H 05/24/21 22:55 Urine Bacteria (Auto) Negative (Negative) 05/24/21 22:55 COVID-19 Eval Order Covid19 at [facility] 05/24/21 20:56 SARS-CoV-2 (PCR) NEGATIVE (Negative) 05/24/21 20:56 Impressions Chest X-Ray 05/24/21 20:22 XR chest 1V portable HISTORY: 75 years-old Female weakness acute weakness COMPARISON: Chest CT 05/12/2018, chest radiographs 03/30/2016 TECHNIQUE: Portable AP view of the chest FINDINGS: Cardiac silhouette is enlarged. Calcified plaque of the thoracic aorta. Calcified subcarinal lymph nodes with calcified pulmonary granulomata. No pneumothorax, pleural effusion or overt pulmonary edema. Hiatal hernia. Degenerative changes of the shoulders and spine. IMPRESSION: 1. Cardiomegaly without pulmonary edema. 2. Prior granulomatous disease. 3. Hiatal hernia. ACT 112: Negative or not required by law. The above report was generated using voice recognition software. It may contain grammatical, syntax or spelling errors. Electronically signed by: Srinivas Kent M.D. 05/24/2021 9:17 PM Abdomen/Pelvis CT 05/24/21 20:[address] WITHOUT CONTRAST CT DOSE: 999.88 mGy.cm HISTORY: Acute vomiting with left lower quadrant abdominal pain vomting, LLQ abd pain TECHNIQUE: Multiaxial CT images of the abdomen and pelvis were performed without contrast. A dose lowering technique was utilized adhering to the principles of ALARA. COMPARISON STUDY: CT abdomen and pelvis 04/09/2016 FINDINGS: Clear lung bases. No pneumatosis or pneumoperitoneum. Coronary artery calcifications. Trace pericardial effusion. Calcified granulomata of the liver and spleen. Hepatomegaly with hepatic steatosis. Unremarkable gallbladder, pancreas and adrenal glands. Nonspecific bilateral perinephric stranding. No renal or ureteral calculi or hydronephrosis. Mild urinary bladder wall thickening with partial distention. Pelvic floor relaxation with small cystocele and rectocele. Atherosclerosis of the aorta without aneurysm. No adenopathy. Large hiatal hernia with trace free fluid in the hernia sac. No bowel obstruction. Colonic diverticulosis. Prior partial sigmoid colon resection with colocolonic anastomosis. No CT evidence of acute diverticulitis. Normal appendix. Trace interloop edema involving a few loops of nondilated small bowel within the left midabdomen. No definite bowel wall thickening. No acute fracture. Degenerative changes of the spine, pelvis and hips. IMPRESSION: 1. No bowel obstruction or bowel wall thickening. Normal appendix. 2. Trace interloop edema involving a few loops of small bowel within the left midabdomen are noted. This finding in conjunction with the patient history of nausea and vomiting is suggestive of a mild nonspecific enteritis. 3. Colonic diverticulosis without CT evidence of acute diverticulitis. 4. Prior partial sigmoid colon resection with colocolonic anastomosis. 5. Large hiatal hernia. 6. Additional findings as above. ACT 112: Negative or not required by law. The above report was generated using voice recognition software. It may contain grammatical, syntax or spelling errors. Electronically signed by: Srinivas Kent M.D. 05/24/2021 10:10 PM Code Status & VTE Plan Code Status Full code VTE Prophylaxis Plan VTE Prophylaxis will be ordered: Yes PG Care Time/CCT Total # of Minutes Spent Total Time Spent with Patient: Total time spent is greater than 50% in coordination of care (as documented) at patient's floor/unit and/or counseling patient: Coding Level of Care Code 06854 Initial Inpt Care Lvl 3 Diagnoses Vomiting R11.10 Weakness R53.1 Enteritis K52.9 Acute UTI (urinary tract infection) N39.0 Hypothyroidism E03.9 Cellulitis of left lower extremity L03.116 Acute kidney injury superimposed on chronic kidney disease N17.9; N18.9 Hypertension I10 Dyslipidemia E78.5 AF (paroxysmal atrial fibrillation) I48.0 Asthma J45.909 Type 2 diabetes mellitus with renal complication E11.29 Hypoxia R09.02
[2021-05-25] MEDS ORDERED: GLUCAGON FOR INJ 1 MG VIAL SQ PRN (02:22)
[2021-05-25] MEDS ORDERED: ACETAMINOPHEN 325 MG TAB PO PRN (02:22)
[2021-05-25] MEDS ORDERED: PIPERACILL/TAZOBAC CONSULT ACTIVE PRN (02:22)
[2021-05-25] MEDS ORDERED: CARBOHYDRATES FOR HYPOGLYCEMIA PO PRN (02:22)
[2021-05-25] MEDS ORDERED: VANCOMYCIN CONSULT ACTIVE PRN (02:22)
[2021-05-25] MEDS ORDERED: KETOCONAZOLE 2% CR 15 GM TUBE EXT PRN (02:22)
[2021-05-25] MEDS ORDERED: ONDANSETRON INJ 2 MG/ML 2 ML VIAL IV PRN (02:22)
[2021-05-25] MEDS ORDERED: SODIUM CHLORIDE 0.9% 1000ML 1,000 ML IV SCH (02:22)
[2021-05-25] MEDS ORDERED: DEXTROSE 50% 50 ML SYRINGE IV PRN (02:22)
[2021-05-25] MEDS ORDERED: ARTIFICIAL TEARS OP PRN (02:22)
[2021-05-25] MEDS ORDERED: GLUCOSE 40% GEL 15 GM TUBE PO PRN (02:22)
[2021-05-25] MEDS ORDERED: GLUCOSE 10 TABS/TUBE PO PRN (02:22)
[2021-05-25] MEDS ORDERED: PIPERACILLIN/TAZOBACTAM 4.5 GM in DEXTROSE 5% 100 ML IV ONE (02:45)
[2021-05-25] MEDS ORDERED: VANCOMYCIN HCL 2,000 MG in SODIUM CHLORIDE 0.9% 500 ML IV ONE (02:45)
[2021-05-25] MEDS: APIXABAN 5 MG TABLET PO SCH ×3 (03:10→20:49)
[2021-05-25] MEDS: LEVOTHYROXINE SODIUM 25 MCG TABLET PO SCH (06:47)
[2021-05-25] MEDS: ASCORBIC ACID 500 MG TAB PO SCH (08:00)
[2021-05-25] MEDS: CYANOCOBALAMIN 500 MCG TABLET (VITAMIN B-12) PO SCH (08:00)
[2021-05-25] MEDS: SIMVASTATIN 10 MG TAB PO SCH (08:00)
[2021-05-25] MEDS: FERROUS SULFATE 325 MG TAB PO SCH (08:00)
[2021-05-25] MEDS: amLODIPine BESYLATE 5 MG TAB PO SCH (08:00)
[2021-05-25] MEDS: ASPIRIN 81 MG ECTAB PO SCH (08:00)
[2021-05-25] MEDS: FLUTICASONE/VILANTEROL 200/25MCG 14 PUFFS/INHALER INH SCH (08:02)
[2021-05-25] MEDS: PIPERACILLIN/TAZOBACTAM 4.5 GM in DEXTROSE 5% 100 ML IV SCH ×2 (08:04→16:43)
--- NOTE | 2021-05-25 08:43 | CT Scan Report ---
CT SCAN OF THE CHEST WITHOUT IV CONTRAST CLINICAL HISTORY: Hypoxia. COMPARISON STUDY: Chest x-ray dated 05/24/2021. Chest CT scan dated 05/12/2018. TECHNIQUE: CT scan of the thorax was performed from the thoracic inlet to the upper abdomen. Images are reviewed in the axial, sagittal, and coronal planes. IV contrast was not administered for this ex amination as per the referring clinician. A dose lowering technique was utilized adhering to the reading hospitalples of VIKAS. CT DOSE: 398.63 mGy.cm FINDINGS: Thyroid: Imaged portions of the thyroid gland are normal in size and attenuation. Thoracic aorta: There is mild atherosclerotic calcification of the thoracic aorta, which is normal in caliber and demonstrates standard 3-vessel arch anatomy. Heart: The heart is normal in size and without pericardial effusion. The coronary arteries and mitral annulus are densely calcified. Lungs and pleural spaces: There is no airspace consolidation typical for pneumonia or pleural effusio n. Foci of scarring/atelectasis are noted at the lung bases. The trachea and central airways are skye r. A fat-containing Bochdalek hernia is noted at the right lung base. Scattered calcified granulomas are incidentally noted. A 4 mm pulmonary nodule at the left apex on image #55 and a 2 mm left lower l obe pulmonary nodule on image #114 are unchanged from 2018 and of doubtful significance. Mediastinum: There are calcified mediastinal nodes. No mediastinal adenopathy is identified. Mahsa: There are calcified right hilar nodes. Note that the mahsa are not assessed without IV contrast. Axillae: There is no axillary lymphadenopathy. Upper abdomen: There is a large hiatal hernia, with the majority of the stomach located in the thorac ic cavity. Calcified granulomas are noted in the liver and spleen. Skeletal structures: The skeletal structures are osteopenic. No lytic or blastic bony lesions are see n. Mild degenerative change is noted in the shoulders and thoracic spine. IMPRESSION: 1. There is no airspace consolidation or pleural effusion. 2. Large hiatal hernia. 3. Additional findings as above. ACT 112: Negative or not required by law. Electronically signed by: Stevo Byrne M.D. 05/25/2021 8:42 AM
--- NOTE | 2021-05-25 08:49 | Pharmacy Report ---
Pharmacy Vanc AUC Short Note - Date of Service May 25, 2021 - Assessment & Plan Assessment 75 year old F receiving IV Vancomycin + Zosyn for treatment of LLE Cellulitis. Blood and urine cultures pending. WBC 19, afebrile. Plan Vancomycin * AUC/ESEQUIEL is the preferred PK/PD target for vancomycin * AUC guided dosing is effective and associated with decreased risk of nephrotoxicity compared to traditional trough targets * Vancomycin 2g (20mg/kg) IV x1 dose given at 0342 today * Vancomycin 1500mg (15mg/kg) IV Q24H * Dose chosen anticipating some improvement in SCr, if no improvement or worsening will reduce dose sooner * Trough level of 17.4 mcg/mL is predicted to achieve target AUC/ESEQUIEL of 400-600 mg/L.hr and may be associated with a 13 % risk of nephrotoxicity * Trough level ordered for: 05/27/21 Zosyn 4.5g IV Q8H for CrCl > 20ml/min and BMI 35kg/m2 Pharmacy will continue to follow and will adjust dose/frequency as necessary. Thank you.
[2021-05-25] MEDS ORDERED: [UNRECOGNIZED DRUG - OTHER] PO SCH (09:00)
[2021-05-25] MEDS: INSULIN GLARGINE SOLOSTAR 100 UNITS/ML 3 ML PEN SC SCH (09:29)
[2021-05-25] MEDS: INSULIN ASPART 100 UNITS/ML 3 ML PEN SC SCH ×4 (09:32→20:53)
--- NOTE | 2021-05-25 15:36 | Hospitalist Progress Note ---
Date of Service May 25, 2021 Assessment & Plan (1) Vomiting: Plan: Admitted overnight with vomiting/enteritis. Limited to 1 episode per the patient. - Improved. - Denies diarrhea. - CT showing possible mild nonspecific enteritis - ? component of diabetic gastroparesis vs sign of early sepsis - Zofran PRN - OK for diabetic diet (2) Enteritis: Plan: As above. (3) Cellulitis of left lower extremity: Plan: Cellulitis of left lower extremity and foot noted on admission. - WBC count of 19.05 on admission. - Placed on Vancomycin and Zosyn IV - Erythema already seems to have receded from line drawn around left lower leg. Continues to have erythema and edema of the left foot. No open wounds visualized. - Blood cultures pending. (4) Acute UTI (urinary tract infection): Plan: Hx of recurrent UTI. - UC&S pending. - No stones on CT. - On IV Vancomycin and Zosyn (5) Weakness: Plan: Likely r/t illness, possible early sepsis. - PT/OT (6) Type 2 diabetes mellitus with renal complication: Plan: Last Hgb A1C 7.8% on 03/17/21. Repeat pending. - Hold metformin and Jardiance - Levemir reduced to 12 units daily from 16-18 unites on admission - SS insulin - BSG ACHS - Fungal dermatitis on lower abdomen. Continue home ketoconazole. (7) Acute kidney injury superimposed on chronic kidney disease: Plan: stage III CKD - Follows with Dr. Farris - Cr 1.36 on admission. Baseline ~1.1 - Gentle IVF NSS 60mls/hr. - Recheck in AM. (8) Hypoxia: Plan: 91-92% on RA on admission. Improved to 96% on 2L. - Continue fluticasone-salmeterol inhaler - Hx of histoplasmosis - CT of chest showing large hiatal hernia and stable pulmonary nodules at the left apex and left lower lobe as compared to 2018. No evidence for pleural effusion or pneumonia. - - O2 sat 90% on RA this evening. Will order O2 PRN with goal sat of 95%. Repeat chest XR this evening to r/o developing pneumonia. (9) Hypothyroidism: Plan: TSH 0.682 on 05/24/21. Continue levothyroxine 25mcg daily. (10) Hypertension: Plan: BP 100/57 this AM. - Continue amlodipine and metoprolol. - Monitor. (11) Dyslipidemia: Plan: Continue simvastatin. (12) Asthma: Plan: As above. (13) DVT prophylaxis: Plan: On apixaban. Hold SCDs in setting of LLE cellulitis. (14) AF (paroxysmal atrial fibrillation): Plan: NSR on EKG from 05/24. - Continue apixaban, metoprolol, amlodipine, and ASA Plan: Disposition - med/surg Admission and Anticipated Discharge Date Admission Date: May 25, 2021 Supervising Physician Co-Signing Physician Notes Attending Attestation: Chart reviewed, care plan d/w [employer]AD Rosales. I agree w/ the owen components of her documentation. Tone Kirby MD Subjective 75 year old female admitted with n/v, and cellulitis of the left foot. ? developing sepsis. Patient resting in bed this AM. She denies any n/v. Denies pain. Review of Systems Constitutional: no fever and no chills Ear, Nose, Mouth, Throat: no dizziness Respiratory: no dyspnea Cardiovascular: no chest pain Gastrointestinal: no abdominal pain, no nausea, no vomiting and no diarrhea/loose stools Genitourinary: no dysuria Integumentary: + rash (lower abdomen and groin) Physical Exam Physical Exam: Temp Pulse Resp BP Pulse Ox 36.9 C 81 18 100/57 L 91 05/25/21 07:51 05/25/21 07:51 05/25/21 07:51 05/25/21 07:51 05/25/21 07:51 Patient is hypotensive at 100/57. Constitutional: + obese; no acute distress ENMT: Ears: no hearing impairment Neck: normal visual inspection Respiratory: normal respiratory effort, lungs clear to auscultation Cardiovascular: Rate/Rhythm: regular rate and regular rhythm Vessels: no JVD Extremities: + edema (non-pitting; L>R) Gastrointestinal (Abdomen): Inspection/Auscultation: + hypoactive bowel sounds Percussion/Palpation: abdomen soft; abdomen nontender Musculoskeletal: Head/Neck/Chest: normocephalic Skin: + erythema (left foot and ankle) Psychiatric: A+Ox3, euthymic affect Results & Data Results & Data ([facility]) Vital Signs (Past 12 Hours) Vital Signs Temp Pulse Resp BP Pulse Ox 05/25/21 07:51 36.9 C 81 18 100/57 L 91 PG Care Time/CCT Total # of Minutes Spent Total Time Spent with Patient: Total time spent is greater than 50% in coordination of care (as documented) at patient's floor/unit and/or counseling patient: Coding Level of Care Code None Diagnoses Vomiting R11.10 Enteritis K52.9 Cellulitis of left lower extremity L03.116 Acute UTI (urinary tract infection) N39.0 Weakness R53.1 Type 2 diabetes mellitus with renal complication E11.29 Acute kidney injury superimposed on chronic kidney disease N17.9; N18.9 Hypoxia R09.02 Hypothyroidism E03.9 Hypertension I10 Dyslipidemia E78.5 Asthma J45.909 DVT prophylaxis Z29.9 AF (paroxysmal atrial fibrillation) I48.0 Comment No charge as within 24hrs of admission H&P.
[2021-05-25] MEDS: CHOLECALCIFEROL 1,000 UNITS 25 MCG TAB PO SCH (16:38)
[2021-05-25] MEDS: VANCOMYCIN HCL 1,500 MG in SODIUM CHLORIDE 0.9% 500 ML IV SCH (16:43)
--- NOTE | 2021-05-25 20:01 | XRay Report ---
SINGLE VIEW CHEST CLINICAL HISTORY: Hypoxia. FINDINGS: An AP, portable, upright chest radiograph is compared to study dated 05/24/2021 and correlat ed with chest CT performed the same day 05/25/2021. There is a large hiatal hernia. The heart is top n ormal for projection noting atherosclerotic calcification of the thoracic aorta. There are calcified mediastinal and hilar lymph nodes, small calcified pulmonary granulomas. There is bibasilar scarring/ atelectasis. No airspace consolidation or large pleural effusion is identified. No pneumothorax is se en. The skeletal structures are osteopenic. The bony thorax is grossly intact. IMPRESSION: 1. No active disease in the chest. 2. Large hiatal hernia. ACT 112: Negative or not required by law. Electronically signed by: Stevo Byrne M.D. 05/25/2021 7:59 PM
[2021-05-25] MEDS: METOPROLOL SUCC 50MG EXT REL TAB PO SCH (20:49)
[2021-05-26] MEDS: PIPERACILLIN/TAZOBACTAM 4.5 GM in DEXTROSE 5% 100 ML IV SCH ×4 (00:35→23:13)
[2021-05-26] MEDS: LEVOTHYROXINE SODIUM 25 MCG TABLET PO SCH (06:05)
--- NOTE | 2021-05-26 06:05 | Electrocardiogram Report ---
Test Reason : Blood Pressure : / mmHG Vent. Rate : 082 BPM Atrial Rate : 082 BPM P-R Int : 158 ms QRS Dur : 074 ms QT Int : 392 ms P-R-T Axes : 041 016 030 degrees QTc Int : 457 ms Normal sinus rhythm Normal ECG When compared with ECG of 12-MAR-2016 08:19, No significant change was found Confirmed by Jaime Arora ([id number]) on 05/26/2021 6:04:44 AM Referred By: REFERRED SELF Confirmed By:Jaime Arora
[2021-05-26 08:03] LABS: Estimated Average Glucose 169 mg/dl; Hemoglobin A1C 7.5 % (4.5-5.6)
[2021-05-26] MEDS: amLODIPine BESYLATE 5 MG TAB PO SCH (08:03)
[2021-05-26] MEDS: SIMVASTATIN 10 MG TAB PO SCH (08:04)
[2021-05-26] MEDS: CYANOCOBALAMIN 500 MCG TABLET (VITAMIN B-12) PO SCH (08:04)
[2021-05-26] MEDS: FERROUS SULFATE 325 MG TAB PO SCH (08:04)
[2021-05-26] MEDS: ASCORBIC ACID 500 MG TAB PO SCH (08:04)
[2021-05-26] MEDS: ASPIRIN 81 MG ECTAB PO SCH (08:04)
[2021-05-26] MEDS: FLUTICASONE/VILANTEROL 200/25MCG 14 PUFFS/INHALER INH SCH (08:05)
[2021-05-26] MEDS: APIXABAN 5 MG TABLET PO SCH ×2 (08:05→21:05)
[2021-05-26 08:39] LABS: Basophils # (auto) 0.02 K/uL (0-0.2); Basophils % (auto) 0.2 %; Eosinophils # (auto) 0.34 K/uL (0-0.5); Eosinophils % (auto) 3.6 %; Hematocrit (blood only) 37.9 % (37-47); Hemoglobin 12.5 g/dL (12.0-16.0); Immature Granulocytes # (auto) 0.02 K/uL (0.00-0.02); Immature Granulocytes % (auto) 0.2 %; Lymphocytes # (auto) 0.93 K/uL (1.2-3.4); Lymphocytes % (auto) 9.9 %; Mean Corpuscular Hemoglobin 29.2 pg (25-34); Mean Corpuscular Volume 88.6 fL (80-100); Mean Platelet Volume 9.8 fL (7.4-10.4); Monocytes # (auto) 0.74 K/uL (0.11-0.59); Monocytes % (auto) 7.9 %; Neutrophils # (auto) 7.37 K/uL (1.4-6.5); Neutrophils % (auto) 78.2 %; Platelet Count 236 K/uL (130-400); RDW Coefficient of Variation 13.5 % (11.5-14.5); RDW Standard Deviation 44.2 fL (36.4-46.3); Red Blood Count 4.28 M/uL (4.2-5.4); White Blood Count 9.42 K/uL (4.8-10.8)
[2021-05-26] MEDS: INSULIN GLARGINE SOLOSTAR 100 UNITS/ML 3 ML PEN SC SCH (09:10)
[2021-05-26] MEDS: INSULIN ASPART 100 UNITS/ML 3 ML PEN SC SCH ×4 (09:11→21:06)
[2021-05-26 09:16] LABS: Albumin Level 2.6 gm/dl (3.4-5.0); BUN Creatinine Ratio 13.7 (10-20); Calcium 8.8 mg/dl (8.5-10.1); Est GFR (African American) 52.6 ml/min; Est GFR (Non-African American) 45.4 ml/min; Potassium 3.8 mmol/L (3.5-5.1)
[2021-05-26 09:18] LABS: Albumin Globulin Ratio 0.7 (0.9-2); Bilirubin,Total 0.3 mg/dl (0.2-1); Globulin 3.8 gm/dl (2.5-4.0); Total Protein 6.4 gm/dl (6.4-8.2)
--- NOTE | 2021-05-26 14:02 | Hospitalist Progress Note ---
Date of Service May 26, 2021 Assessment & Plan (1) Vomiting: Plan: - RESOLVED - CT suggests possible mild non-specific enteritis - Anti-emetics as needed (2) Enteritis: Plan: - See above - Possible component of diabetic gastroparesis as well? Never formally diagnosed - No intervention necessary at this time as symptoms are resolved; did have a small formed bowel movement today (3) Cellulitis of left lower extremity: Plan: - IMPROVING - Reports chronic issues with edema of LLE and H/O tendon vs ligament rupture in the past - Does not report missed doses of anti-coagulation so unlike for DVT as contributing factor - Continue Vancomycin and Zosyn therapy currently - plan to downgrade to appropriate skin coverage - given diabetic could be polymicrobial (4) Type 2 diabetes mellitus with renal complication: Plan: Reduce Levemir from 16-18, down to 12 units subcu daily. Hold Metformin and Jardiance Place on Accu-Cheks before meals and at bedtime with NovoLog coverage per scale (5) Weakness: Plan: - IMPROVING - Suspect related to infection - plan for home as do not anticipate additional needse (6) Acute UTI (urinary tract infection): Plan: - History of recurrent urinary tract infections, but none on record here - CT does not show kidney stones. - UCx with multiple organisms and mixed skin marta; UA with > 30 epithelial cells so could be a contaminated specimen - No urinary symptoms -- Should have appropriate coverage with Zosyn/Vanc (7) AF (paroxysmal atrial fibrillation): Plan: - Atrial fibrillation/hypertension - Continue apixaban, metoprolol succinate, amlodipine, and aspirin (8) Hypertension: Plan: See above (9) Acute kidney injury superimposed on chronic kidney disease: Plan: - Creatinine 1.36 on admission and currently resolved (10) Hypoxia: Plan: - No documented readings of hypoxia in chart? was 91-92% on RA and did i ntermittently use 2L NC - H/O histoplasmosis - If she had issues with hypoxia in the past - maybe related to difficulty with full lung expansion given large hiatal hernia? No consolidations or effusions on CT (11) Asthma: Plan: See above (12) Hypothyroidism: Plan: - Continue levothyroxine 25 mcg daily (13) Dyslipidemia: Plan: - Continue simvastatin 10 mg daily Plan: - Reassess skin in AM; plan to convert to oral coverage with possible D/C tomorrow Admission and Anticipated Discharge Date Admission Date: May 25, 2021 Subjective Reports feeling well today. Still with some warmth to the LLE but erythema continues to reduce from the delineated area. Tolerating a diet and moving her bowels. Verbalizes no complaints. Review of Systems Review of Systems: REVIEW OF SYSTEMS General/Constitutional: Denies fever/chills ENT: Denies sore throat, trouble swallowing Cardiovascular: Denies chest pain, palpitations, edema Respiratory: Denies cough, sputum, SOB, wheezing, orthopnea GI: Denies nausea, vomiting, abdominal pain, constipation, diarrhea : Denies dysuria Musculoskeletal: Denies joint/muscle aches Skin: + improving pain, warmth, redness of LLE Physical Exam Physical Exam: PHYSICAL EXAM General Appearance: WDWN in NAD who is A&O x 3 HEENT: Head is normocephalic/atraumatic; Hearing grossly intact; Mucous membranes moist Neck: Supple; Trachea midline; Neg JVD Heart: RRR with no M/G/R Lungs: CTA in all lung irizarry bilaterally; Respirations unlabored; Neg accessory muscle use Abdomen: Soft, non-tender, non-distended; Positive BS x 4 quadrants Extremities: Capillary refill < 2 seconds; Neg cyanosis or edema Neurological: Speech clear; Gross motor/sensory function intact; Neg focal neurologic deficits Psychiatric: Appropriate mood/affect Skin: Mild erythema of the LLE more medially which has reduced down from delineated line; warm to touch and mild edema Results & Data Results & Data ([facility]) Vital Signs (Past 12 Hours) Vital Signs Temp Pulse Resp BP Pulse Ox 05/26/21 07:14 37.1 C 85 16 100/64 92 PG Care Time/CCT Total # of Minutes Spent Total Time Spent with Patient: Total time spent is greater than 50% in coordination of care (as documented) at patient's floor/unit and/or counseling patient: Coding Level of Care Code 49320 Subseq Hosp Care Lvl 2 Diagnoses Vomiting R11.10 Enteritis K52.9 Cellulitis of left lower extremity L03.116 Type 2 diabetes mellitus with renal complication E11.29 Weakness R53.1 Acute UTI (urinary tract infection) N39.0 AF (paroxysmal atrial fibrillation) I48.0 Acute kidney injury superimposed on chronic kidney disease N17.9; N18.9 Hypoxia R09.02 Hypothyroidism E03.9 Hypertension I10 Dyslipidemia E78.5 Asthma J45.909
[2021-05-26] MEDS: VANCOMYCIN HCL 1,500 MG in SODIUM CHLORIDE 0.9% 500 ML IV SCH (16:31)
[2021-05-26] MEDS: CHOLECALCIFEROL 1,000 UNITS 25 MCG TAB PO SCH (17:59)
[2021-05-26] MEDS: METOPROLOL SUCC 50MG EXT REL TAB PO SCH (21:05)
[2021-05-26] MEDS ORDERED: MICONAZOLE NITRATE POWDER 43 GM EXT PRN (21:13)
[2021-05-27] MEDS: LEVOTHYROXINE SODIUM 25 MCG TABLET PO SCH (05:39)
[2021-05-27] MEDS: APIXABAN 5 MG TABLET PO SCH (08:02)
[2021-05-27] MEDS: FERROUS SULFATE 325 MG TAB PO SCH (08:02)
[2021-05-27] MEDS: ASPIRIN 81 MG ECTAB PO SCH (08:02)
[2021-05-27] MEDS: FLUTICASONE/VILANTEROL 200/25MCG 14 PUFFS/INHALER INH SCH (08:02)
[2021-05-27] MEDS: SIMVASTATIN 10 MG TAB PO SCH (08:02)
[2021-05-27] MEDS: ASCORBIC ACID 500 MG TAB PO SCH (08:02)
[2021-05-27] MEDS: amLODIPine BESYLATE 5 MG TAB PO SCH (08:02)
[2021-05-27] MEDS: CYANOCOBALAMIN 500 MCG TABLET (VITAMIN B-12) PO SCH (08:02)
[2021-05-27 08:07] LABS: Basophils # (auto) 0.02 K/uL (0-0.2); Basophils % (auto) 0.4 %; Eosinophils # (auto) 0.44 K/uL (0-0.5); Eosinophils % (auto) 7.8 %; Hematocrit (blood only) 36.2 % (37-47); Immature Granulocytes # (auto) 0.01 K/uL (0.00-0.02); Immature Granulocytes % (auto) 0.2 %; Lymphocytes # (auto) 1.07 K/uL (1.2-3.4); Lymphocytes % (auto) 19.1 %; Mean Corpuscular Hemoglobin 29.1 pg (25-34); Mean Corpuscular Hgb Conc 33.1 g/dL (32-36); Mean Corpuscular Volume 87.9 fL (80-100); Mean Platelet Volume 10.3 fL (7.4-10.4); Monocytes # (auto) 0.58 K/uL (0.11-0.59); Monocytes % (auto) 10.3 %; Neutrophils # (auto) 3.49 K/uL (1.4-6.5); Neutrophils % (auto) 62.2 %; Platelet Count 246 K/uL (130-400); RDW Coefficient of Variation 13.2 % (11.5-14.5); RDW Standard Deviation 42.7 fL (36.4-46.3); Red Blood Count 4.12 M/uL (4.2-5.4); White Blood Count 5.61 K/uL (4.8-10.8)
[2021-05-27] MEDS: PIPERACILLIN/TAZOBACTAM 4.5 GM in DEXTROSE 5% 100 ML IV SCH (08:36)
[2021-05-27 08:48] LABS: Albumin Globulin Ratio 0.7 (0.9-2); Albumin Level 2.6 gm/dl (3.4-5.0); BUN Creatinine Ratio 15.3 (10-20); Bilirubin,Total 0.4 mg/dl (0.2-1); Calcium 9.1 mg/dl (8.5-10.1); Creatinine Clr Calc Pharmacy 50.4 ml/min; Est GFR (African American) 58.7 ml/min; Est GFR (Non-African American) 50.6 ml/min; Globulin 3.7 gm/dl (2.5-4.0); Potassium 3.9 mmol/L (3.5-5.1); Total Protein 6.3 gm/dl (6.4-8.2)
[2021-05-27] MEDS: INSULIN GLARGINE SOLOSTAR 100 UNITS/ML 3 ML PEN SC SCH (09:27)
[2021-05-27] MEDS: INSULIN ASPART 100 UNITS/ML 3 ML PEN SC SCH ×2 (09:27→12:49)
[2021-05-27] MEDS ORDERED: VANCOMYCIN TROUGH ONE (15:30)
--- NOTE | 2021-05-27 15:57 | Discharge Summary ---
Date of Service May 27, 2021 Admission HPI Per Admitting Provider The patient is a 75-year-old female with a history clued doing hypothyroidism, SNHL of both ears, CKD stage III, diabetes mellitus, low back pain, pulmonary nodules, LV diastolic dysfunction, LVH, hypertension, history of histoplasmosis, dyslipidemia, diabetic nephropathy, depression, moderate persistent allergic asthma, paroxysmal atrial fibrillation, and UTI. The patient has no specific complaints, other than reporting just not feeling well in general. Her notes this to be a problem over the past few days. She reports that she urinates frequently, but she always has to because she drinks a lot of water due to being diabetic. She reports her blood sugars not been significantly different. She has chronically mildly loose stools, which is unchanged. She denies any chest pain or shortness of breath. Principal Diagnosis Left Lower Extremity Cellulitis Discharge Exam PHYSICAL EXAM General Appearance: WDWN in NAD who is A&O x 3 HEENT: Head is normocephalic/atraumatic; Hearing grossly intact; Mucous membranes moist Neck: Supple; Trachea midline; Neg JVD Heart: RRR with no M/G/R Lungs: CTA in all lung irizarry bilaterally; Respirations unlabored; Neg accessory muscle use Abdomen: Soft, non-tender, non-distended; Positive BS x 4 quadrants Extremities: Capillary refill < 2 seconds; Neg cyanosis; LLE with mild pink coloration mostly to the medial aspect of the lemon region that is slightly warm to touch (erythema and warmth reduced from yesterday) signficiant reduction from demarcated region which extended to approx. mid calf; mild edema around inflamed area but non-pitting Neurological: Speech clear; Gross motor/sensory function intact; Neg focal neurologic deficits Psychiatric: Appropriate mood/affect Skin: Normal Color; Warm/Dry except as described above Discharge Data Allergies Allergy/AdvReac Type Severity Reaction Status Date / Time prednisone Allergy Difficulty Unverified 06/03/21 14:13 Breathing/ Rash ciprofloxacin AdvReac Intermediate Nausea and Verified 06/03/21 14:13 vomiting metronidazole AdvReac Intermediate Nausea and Verified 06/03/21 14:13 vomiting Consultations 05/25/21 00:02 ED Decision to Admit Stat Ordered Studies Chest X-Ray 05/24/21 20:22 XR chest 1V portable HISTORY: 75 years-old Female weakness acute weakness COMPARISON: Chest CT 05/12/2018, chest radiographs 03/30/2016 TECHNIQUE: Portable AP view of the chest FINDINGS: Cardiac silhouette is enlarged. Calcified plaque of the thoracic aorta. Calcified subcarinal lymph nodes with calcified pulmonary granulomata. No pneumothorax, pleural effusion or overt pulmonary edema. Hiatal hernia. Degenerative changes of the shoulders and spine. IMPRESSION: 1. Cardiomegaly without pulmonary edema. 2. Prior granulomatous disease. 3. Hiatal hernia. ACT 112: Negative or not required by law. The above report was generated using voice recognition software. It may contain grammatical, syntax or spelling errors. Electronically signed by: Srinivas Kent M.D. 05/24/2021 9:17 PM Abdomen/Pelvis CT 05/24/21 20:[address] WITHOUT CONTRAST CT DOSE: 999.88 mGy.cm HISTORY: Acute vomiting with left lower quadrant abdominal pain vomting, LLQ abd pain TECHNIQUE: Multiaxial CT images of the abdomen and pelvis were performed without contrast. A dose lowering technique was utilized adhering to the principles of ALARA. COMPARISON STUDY: CT abdomen and pelvis 04/09/2016 FINDINGS: Clear lung bases. No pneumatosis or pneumoperitoneum. Coronary artery calcifications. Trace pericardial effusion. Calcified granulomata of the liver and spleen. Hepatomegaly with hepatic steatosis. Unremarkable gallbladder, pancreas and adrenal glands. Nonspecific bilateral perinephric stranding. No renal or ureteral calculi or hydronephrosis. Mild urinary bladder wall thickening with partial distention. Pelvic floor relaxation with small cystocele and rectocele. Atherosclerosis of the aorta without aneurysm. No adenopathy. Large hiatal hernia with trace free fluid in the hernia sac. No bowel obstruction. Colonic diverticulosis. Prior partial sigmoid colon resection with colocolonic anastomosis. No CT evidence of acute diverticulitis. Normal appendix. Trace interloop edema involving a few loops of nondilated small bowel within the left midabdomen. No definite bowel wall thickening. No acute fracture. Degenerative changes of the spine, pelvis and hips. IMPRESSION: 1. No bowel obstruction or bowel wall thickening. Normal appendix. 2. Trace interloop edema involving a few loops of small bowel within the left midabdomen are noted. This finding in conjunction with the patient history of nausea and vomiting is suggestive of a mild nonspecific enteritis. 3. Colonic diverticulosis without CT evidence of acute diverticulitis. 4. Prior partial sigmoid colon resection with colocolonic anastomosis. 5. Large hiatal hernia. 6. Additional findings as above. ACT 112: Negative or not required by law. The above report was generated using voice recognition software. It may contain grammatical, syntax or spelling errors. Electronically signed by: Srinivas Kent M.D. 05/24/2021 10:[address] 05/25/21 00:36 CT SCAN OF THE CHEST WITHOUT IV CONTRAST CLINICAL HISTORY: Hypoxia. COMPARISON STUDY: Chest x-ray dated 05/24/2021. Chest CT scan dated 05/12/2018. TECHNIQUE: CT scan of the thorax was performed from the thoracic inlet to the upper abdomen. Images are reviewed in the axial, sagittal, and coronal planes. IV contrast was not administered for this examination as per the referring clinician. A dose lowering technique was utilized adhering to the principles of ALARA. CT DOSE: 398.63 mGy.cm FINDINGS: Thyroid: Imaged portions of the thyroid gland are normal in size and attenuation. Thoracic aorta: There is mild atherosclerotic calcification of the thoracic aorta, which is normal in caliber and demonstrates standard 3-vessel arch anatomy. Heart: The heart is normal in size and without pericardial effusion. The coronary arteries and mitral annulus are densely calcified. Lungs and pleural spaces: There is no airspace consolidation typical for pneumonia or pleural effusion. Foci of scarring/atelectasis are noted at the lung bases. The trachea and central airways are clear. A fat-containing Bochdalek hernia is noted at the right lung base. Scattered calcified granulomas are incidentally noted. A 4 mm pulmonary nodule at the left apex on image #55 and a 2 mm left lower lobe pulmonary nodule on image #114 are unchanged from 2018 and of doubtful significance. Mediastinum: There are calcified mediastinal nodes. No mediastinal adenopathy is identified. Mahsa: There are calcified right hilar nodes. Note that the mahsa are not assessed without IV contrast. Axillae: There is no axillary lymphadenopathy. Upper abdomen: There is a large hiatal hernia, with the majority of the stomach located in the thoracic cavity. Calcified granulomas are noted in the liver and spleen. Skeletal structures: The skeletal structures are osteopenic. No lytic or blastic bony lesions are seen. Mild degenerative change is noted in the shoulders and thoracic spine. IMPRESSION: 1. There is no airspace consolidation or pleural effusion. 2. Large hiatal hernia. 3. Additional findings as above. ACT 112: Negative or not required by law. Electronically signed by: Stevo Byrne M.D. 05/25/2021 8:42 AM Chest X-Ray 05/25/21 17:26 SINGLE VIEW CHEST CLINICAL HISTORY: Hypoxia. FINDINGS: An AP, portable, upright chest radiograph is compared to study dated 05/24/2021 and correlated with chest CT performed the same day 05/25/2021. There is a large hiatal hernia. The heart is top normal for projection noting atherosclerotic calcification of the thoracic aorta. There are calcified mediastinal and hilar lymph nodes, small calcified pulmonary granulomas. There is bibasilar scarring/atelectasis. No airspace consolidation or large pleural effusion is identified. No pneumothorax is seen. The skeletal structures are osteopenic. The bony thorax is grossly intact. IMPRESSION: 1. No active disease in the chest. 2. Large hiatal hernia. ACT 112: Negative or not required by law. Electronically signed by: Stevo Byrne M.D. 05/25/2021 7:59 PM Hospital Course (1) Vomiting: - RESOLVED - CT suggests possible mild non-specific enteritis (2) Enteritis: - See above - Possible component of diabetic gastroparesis as well? Never formally diagnosed - No intervention necessary at this time as symptoms are resolved; did have a small formed bowel movement today (3) Cellulitis of left lower extremity: - IMPROVING - Reports chronic issues with edema of LLE and H/O tendon vs ligament rupture in the past; utilizes compression stockings which could be utilizes if not having pain - Does not report missed doses of anti-coagulation so unlike for DVT as contributing factor - Used Vancomycin and Zosyn therapy during stay -- No history of MRSA to her knowledge but will cover with Doxycyline 100 mg BID and Cephalexin 500 mg QID x 10 days total with close F/U with PCP for monitoring - renal function allows for full treatment dosing (4) Type 2 diabetes mellitus with renal complication: - A1c is slightly improved to 7.5 from previous - continue home regimen (5) Weakness: - IMPROVING - Suspect related to infection - plan for home as do not anticipate additional needs (6) Acute UTI (urinary tract infection): - History of recurrent urinary tract infections, but none on record here - CT does not show kidney stones. - UCx with multiple organisms and mixed skin marta; UA with > 30 epithelial cells so could be a contaminated specimen - No urinary symptoms -- Should have appropriate coverage with antibiotics (7) AF (paroxysmal atrial fibrillation): - Atrial fibrillation/hypertension - Continue apixaban, metoprolol succinate, amlodipine, and aspirin (8) Hypertension: See above (9) Acute kidney injury superimposed on chronic kidney disease: - Creatinine 1.36 on admission and currently resolved (10) Hypoxia: - No documented readings of hypoxia in chart? was 91-92% on RA and did intermittently use 2L NC - H/O histoplasmosis - If she had issues with hypoxia in the past - maybe related to difficulty with full lung expansion given large hiatal hernia? No consolidations or effusions on CT (11) Asthma: See above (12) Hypothyroidism: - Continue levothyroxine 25 mcg daily (13) Dyslipidemia: - Continue simvastatin 10 mg daily - Cellulitis improving; Plan for follow-up with PCP Total Time Total Time Spent Total Time Spent (In Minutes): Spent greater than 30 minutes preparing patient for discharge. This includes discussion with patient/family, assessment, intervention, medication reconciliation, and coordination of care. Discharge Plan Discharge Items Patient Disposition: Home - Self-Care Reason For Visit: LLE CELLULITIS,NAUSEA AND VOMITING, SHILOH Discharge Diagnosis: Left Lower Extremity Cellulitis (Skin Infection) Activity: Resume your previous activity Non-emergency contact: Primary Care Provider Call non-emergency contact if: you have any medication questions, your symptoms worsen and you have a fever Follow-up/Referrals: Regan Salazar III, CRNP [Primary Care Provider] - (Regan Rosales 06/03/21 at 9:20 Paulette Saleem (for Diabetes) 06/03/21 at 2:00) Diet: Carb Consistent or DM2 Addtl Attending Provider Instructions: Cellulitis (Skin Infection): - It is hard to say how exactly this was caused. Sometimes the smallest little cut in the skin or dry skin can cause a skin infection. - The best way to prevent skin infection is to continue good hygiene, monitor for any cuts in the skin, and prevent dry/cracked skin. Showering instead of soaking in tubs is recommending. And be mindful with shaving as that can put little breaks in the skin. - You will need to complete a course of antibiotics. The redness and swelling may take a few days to a couple weeks to resolve. IF THE PAIN WORSENS, THE REDNESS WORSENS, OR YOU FEEL ILL PLEASE TALK TO YOUR FAMILY DOCTOR OR GET CHECKED OUT IN THE ER - ANTIBIOTICS FOLLOWS. Start with a dose this evening -- Cephalexin 500 mg four times a day for 10 days. Take one dose today then continue until 06 June -- Doxycycline 100 mg twice a day for 10 days. Take one dose today then continue until 06 June Vomiting: - Your CAT scan only showed a mild non-specific enteritis which seems to have clinically resolved. - You may continue your regular diet and avoid any foods that normally irritate your GI tract Diabetes: - Please continue your home regimen as previously prescribed - Your most recent A1c 7.5 which is slightly lower than your last check which is fantastic! Urine: - Your urinalysis did show epithelial cells (skin cells) so this was likely a contaminate so nothing direct grew out on the urine culture. Luckily the antibiotics for your skin should be good coverage for urine regardless Home Medications: - You may continue your home medications as previously prescribed as we have not changed them. Pending Studies at Discharge: No Stand-Alone Forms: [facility] [employer], Smoking Cessation Medications and DC Order Prescriptions: New cephalexin 500 mg capsule 500 mg PO QID 10 Days Qty: 41 RF: 0 doxycycline hyclate 100 mg tablet 100 mg PO BID 10 Days Qty: 21 RF: 0 Continued (DME) pen needle, diabetic [Novofine 32] 32 gauge x 1/4" needle See Dose Instructions .ROUTE .MEDSUPPLY Qty: 200 RF: 3 fluticasone propion-salmeterol [Wixela Inhub] 250-50 mcg/dose blister with device 1 inh inhalation BID Qty: 180 RF: 1 ketoconazole 2 % cream 1 applic topical BID PRN (Reason: rash) Qty: 1 RF: 0 (DME) FreeStyle Paige 2 Mckenney Misc See Rx Instructions .ROUTE .MEDSUPPLY Qty: 1 RF: 0 apixaban 5 mg tablet 5 mg PO BID Qty: 180 RF: 1 metoprolol succinate 50 mg tablet extended release 24 hr 50 mg PO HS Qty: 90 RF: 1 metformin 500 mg tablet 1,000 mg PO BID 90 Days Qty: 360 RF: 3 (DME) FreeStyle Paige 2 Sensor Kit See Rx Instructions .ROUTE .MEDSUPPLY Qty: 1 RF: 5 fexofenadine-pseudoephedrine [Genia-D 12 Hour] 60-120 mg tablet extended release 12 hr 1 tab PO Q12H PRN (Reason: Allergy Symptoms) RF: 0 ferrous sulfate 325 mg (65 mg iron) tablet,delayed release (DR/EC) 325 mg PO QAM RF: 0 cyanocobalamin (vitamin B-12) 1,000 mcg tablet 1,000 mcg PO QAM RF: 0 cholecalciferol (vitamin D3) 1,000 unit capsule 1,000 units PO QDD RF: 0 (DME) OneTouch Ultra Blue Test Strip Strip See Dose Instructions .ROUTE .MEDSUPPLY Qty: 300 RF: 3 insulin aspart U-100 [Novolog Flexpen U-100 Insulin] 100 unit/mL (3 mL) insulin pen 2 - 4 unit subcut WM RF: 0 Tresiba FlexTouch U-100 100 unit/mL (3 mL) insulin pen 16 - 18 unit SQ DAILY RF: 0 aspirin [Aspirin Low Dose] 81 mg Tablet,Delayed Release (Dr/Ec) 81 mg PO QAM RF: 0 ascorbic acid (vitamin C) 500 mg Tablet 500 mg PO QAM RF: 0 One-A-Day Women's 50 Plus 1 tab PO QAM RF: 0 simvastatin 10 mg tablet 10 mg PO QAM RF: 0 amlodipine 5 mg tablet 5 mg PO QAM RF: 0 levothyroxine 25 mcg tablet 25 mcg PO QAM RF: 0 Jardiance 25 mg tablet 25 mg PO QAM RF: 0 No Action polyvinyl alcohol 1.4 % drops 1 drp OP UD PRNRF: 0 Discharge Orders: Discharge Order (Routine); Ordered 05/27/21 Ordered By: Wendi Fitzgerald/Other Patient Handouts: A1C, Managing Type 2 Diabetes Admission Data Admit Date/Time: 05/25/21 00:36 Attending Provider: Jas Pham Admit Provider: Nilay Ozuna Primary Care Provider: Regan Salazar III Other Interventions: Discharge Summary Assessment (RN) Last Done: 05/27/21 13:56 Supervising Physician Co-Signing Physician Notes Attending note: patient seen and examined with Wendi Markos PA-C. I agree with her discharge summary. I personally reviewed the labs and imaging findings. patient feeling much better, no vomiting, left lower extremity cellulitis is resolving nicely, only mild erythema, no pain, not hot - Left lower extremity cellulitis: complete a course of Doxy and Keflex, follow up with PCP Coding Level of Care Code D/C DAY MANAGEMENT >30 MINS Diagnoses Vomiting R11.10 Enteritis K52.9 Cellulitis of left lower extremity L03.116 Type 2 diabetes mellitus with renal complication E11.29 Weakness R53.1 Acute UTI (urinary tract infection) N39.0 AF (paroxysmal atrial fibrillation) I48.0 Hypertension I10 Acute kidney injury superimposed on chronic kidney disease N17.9; N18.9 Hypoxia R09.02 Asthma J45.909 Hypothyroidism E03.9 Dyslipidemia E78.5
== END 2021-05-27 14:39 | disposition home or self-care (01) ==
LOC: ED 19:24 → INTOOBSV 05-25 00:36 → 3N 05-25 00:36 → SUATTDRO 05-25 00:36 → 3N 05-25 01:53
DX: J45.909 Unspecified asthma, uncomplicated; L03.116 Cellulitis of left lower limb; Z79.890 Hormone replacement therapy; E03.9 Hypothyroidism, unspecified; E11.29 Type 2 diabetes mellitus with other diabetic kidney complication; Z79.4 Long term (current) use of insulin; R09.02 Hypoxemia; R11.10 Vomiting, unspecified; I48.0 Paroxysmal atrial fibrillation; Z79.899 Other long term (current) drug therapy; N17.9 Acute kidney failure, unspecified; R53.1 Weakness; I12.9 Hypertensive chronic kidney disease with stage 1 through stage 4 chronic kidney disease, or unspecified chronic kidney disease; N18.30 Chronic kidney disease, stage 3 unspecified; Z88.1 Allergy status to other antibiotic agents; Z88.8 Allergy status to other drugs, medicaments and biological substances; K52.9 Noninfective gastroenteritis and colitis, unspecified; Z79.82 Long term (current) use of aspirin; N39.0 Urinary tract infection, site not specified; E78.5 Hyperlipidemia, unspecified

== ENCOUNTER 2024-11-13 14:52 | Inpatient (IN) ==
--- NOTE | 2024-11-13 16:24 | Emergency Department Note ---
Impression & Plan Diverticulitis, Hypoxia, Acute hypotension ED Provider Note NAME: CHARLY ESCOBAR AGE: 79 SEX: F : 1945 ARRIVES VIA: Walk-In INFORMANT: Patient, ED PROVIDER(S): Parag Singh DO CHIEF COMPLAINT: Abdominal pain HPI: The patient is an 79-year-old female who presented to the emergency department at the request of her primary care physician for testing. The patient has been having nausea and diarrhea over the course the last week. Those symptoms improved. The patient then started noticing difficulty moving her bowels and then left lower quadrant tenderness. She denies having any rectal bleeding. ROS: See above HPI for pertinent positives & negatives. A total of 10 systems reviewed and were otherwise negative. PAST MEDICAL HISTORY: See Below PAST SURGICAL HISTORY: See Below FAMILY HISTORY: See Below SOCIAL HISTORY: See Below HOME MEDICATIONS: See Below ALLERGIES: See Below VITALS: See Below PHYSICAL EXAMINATION: GENERAL: Patient is awake alert in no acute distress patient is resting comfortably and showing no signs of anxiety EYES: The conjunctivae are clear. The pupils are round and reactive. EARS, NOSE, MOUTH AND THROAT: The nose is without any evidence of any deformity NECK: The neck is nontender and supple. RESPIRATORY: Normal respiratory effort is noted there is no evidence of wheezing rhonchi or rales CARDIOVASCULAR: Regular rate and rhythm noted there no murmurs rubs or gallops normal S1 normal S2. GASTROINTESTINAL: The abdomen is soft. There is tenderness in the left lower quadrant. There is no guarding or rigidity noted. MUSCULOSKELETAL/EXTREMITIES: There is no evidence of gross deformity full range of motion is noted in the hips and shoulders. SKIN: There is no obvious evidence of any rash. There are no petechiae, pallor or cyanosis noted. NEUROLOGIC: Patient is awake alert and oriented x3 MEDICAL DECISION MAKING: The patient is an 79-year-old female who presented to the emergency department for an evaluation of abdominal pain. The patient did have loose stools last week. She then started having problems with constipation. The patient started having left lower quadrant abdominal pain and came to the emergency department to request of her primary care physician. I discussed the patient's laboratory and radiographic studies with her. She was treated with IV fluids and IV pain medication in the emergency department. She was also treated with IV antibiotics for presumed diverticulitis. The patient's CAT scan did show signs of diverticulitis but no perforation or abscess. Given her abnormal vital signs I will discuss her condition with the on-call [facility] hospitalist. Triage Nursing notes reviewed. Prior medical records reviewed Vital Signs: reviewed and remarkable for hypotension and hypoxia. Differential diagnosis: Etiologies such as appendicitis, diverticulitis, obstruction, inflammatory bowel disease, renal colic, PUD, biliary pathology, pancreatitis, mesenteric ischemia, aortic pathology, infections, genitourinary, UTI, perforated viscus, as well as others were entertained. ER treatment provided: See below Diagnostics interpreted by me: ECG: EKG was obtained in the emergency department. My interpretation is normal sinus rhythm at 83 bpm. There is no ectopy. There is no acute ST segment abnormalities noted. This was compared to a tracing from May 24, 2021 no changes were noted. Cardiac Monitoring: An order was placed for continuous cardiac monitoring. The monitor shows a rate of 74 bpm with sinus rhythm. Laboratory studies: As stated above and show below. Imaging studies: See below. Radiographic imaging was reviewed by myself Consultation(s): Dr[facility] Owens [facility] the patient. Past Med/Surg History Problem List (Updated 11/13/24 @ 18:51 by Parag Singh DO) Acute hypotension (Acute) Hypoxia (Acute) Diverticulitis (Acute) CKD stage 3 due to type 2 diabetes mellitus (Chronic) Edema of left lower extremity Urinary incontinence Hypothyroidism (Chronic) Retina disorder (Acute) Sensorineural hearing loss (SNHL) of both ears (Acute) Type 2 diabetes mellitus with renal complication (Chronic) Recurrent low back pain (Acute) Multiple pulmonary nodules (Acute) Microalbuminuria (Chronic) Left ventricular diastolic dysfunction (Acute) LVH (left ventricular hypertrophy) (Acute) Hypertension (Chronic) History of histoplasmosis (Acute) History of congestive heart failure (Acute) Dyslipidemia (Chronic) Diabetic nephropathy (Acute) Depression (Chronic) Controlled moderate persistent allergic asthma (Acute) Allergic rhinitis (Acute) Adult situational stress disorder (Acute) Asthma (Chronic) Medical History Uncontrolled diabetes mellitus with hyperglycemia, with long-term current use of insulin CKD stage 2 due to type 2 diabetes mellitus AF (paroxysmal atrial fibrillation) Acute kidney injury superimposed on chronic kidney disease Cellulitis of left lower extremity Enteritis Acute UTI (urinary tract infection) Weakness Vomiting Stage III chronic kidney disease Surgical History History of tooth extraction History of colectomy History of tubal ligation History of tonsillectomy Family History Mother Diabetes Grandfather Prostate cancer Denies family history of Ovarian cancer Myocardial infarction Breast cancer Colorectal cancer Social History Smoking Status: Never smoker Second Hand Exposure: Yes; Do You Dip or Chew Tobacco: No; Hx Alcohol Use: Yes Alcohol type: hard liquor Alcohol Intake Frequency: Monthly or Less Hx Substance Use: No Preferred Language: Hungarian Communication Ability: Effective Visual Impairment: No Limitations Hearing Ability: Normal Slate Splitter Required: No Beliefs That Will Affect Care: None marital status: Current Living Situation: Spouse and Family Current Living Situation Comment: with son his SO, grandson and current occupational status: retired Feels Safe at Home: Yes Childhood Exposure to Second-Hand Smoke: Yes Diet: regular Diet Comment: regular Dental Care, Regularly: Yes Physical Activity Frequency: Other Physical Activity Frequency Comment: irregular exercise Seatbelt Use: always Sunscreen Use: No Do you think of yourself as: straight/heterosexual Gender Identity: Female Assistive Devices: Walker Allergies Allergies Allergy/AdvReac Type Severity Reaction Status Date / Time prednisone Allergy Severe Difficulty Verified 11/13/24 18:17 Breathing/ Rash ciprofloxacin AdvReac Intermediate Nausea and Verified 11/13/24 18:17 vomiting metronidazole AdvReac Intermediate Nausea and Verified 11/13/24 18:17 vomiting Home Meds Home Medications Medication Instructions Recorded Confirmed cyanocobalamin (vitamin B-12) 1,000 mcg PO QAM 04/17/19 11/13/24 1,000 mcg tablet ferrous sulfate 325 mg (65 mg 325 mg PO QAM 04/17/19 11/13/24 iron) tablet,delayed release polyvinyl alcohol 1.4 % eye drops 1 drp ophthalmic (eye) UD PRN Dry 06/03/21 11/13/24 Eyes cholecalciferol (vitamin D3) 25 1,000 unit PO DAILY 06/19/24 11/13/24 mcg (1,000 unit) capsule insulin aspart U-100 100 unit/mL 2 - 4 unit subcut TID PRN COVER 06/27/24 11/13/24 (3 mL) subcutaneous pen (Novolog LOW BSG'S FlexPen U-100 Insulin aspart) insulin degludec 100 unit/mL (3 14 unit subcut DAILY 06/27/24 11/13/24 mL) subcutaneous pen (Tresiba FlexTouch U-100 insulin) miconazole nitrate 2 % topical 1 applic topical BID PRN Skin 06/27/24 11/13/24 powder Irritation triamcinolone acetonide 0.1 % 1 applic topical DAILY PRN Skin 06/27/24 11/13/24 topical cream Irritation metformin 500 mg tablet 1,000 mg PO BID 11/13/24 11/13/24 [id number]-htw-[id number] ac 400 1 tab PO DAILY 11/13/24 11/13/24 mcg-calcium carb 500 mg-vit K1 20 mcg tablet (Women's 50 Plus Multivitamin) simvastatin 20 mg tablet 20 mg PO HS 11/13/24 11/13/24 Previous Rx's Medication Instructions Recorded Novofine 32 32 gauge x 1/4" needle #200 ea 07/07/19 (pen needle, diabetic) ketoconazole 2 % topical cream 1 applic topical BID PRN rash #1 g 09/23/20 albuterol sulfate 90 mcg/actuation 1 inh inhalation QID PRN shortness 11/19/21 aerosol inhaler of breath or wheezing #6.7 grams FreeStyle Paige 2 [place] (flash #1 ea 04/22/23 glucose scanning reader) blood sugar diagnostic #10 ea 04/26/23 blood sugar diagnostic (OneTouch #25 strips 06/29/23 Ultra Test strips) metoprolol succinate 50 mg 50 mg PO HS #90 tabs 11/01/23 tablet,extended release 24 hr quetiapine 25 mg tablet (Seroquel) 25 mg PO HS #90 tabs 02/03/24 losartan 50 mg tablet 50 mg PO DAILY #90 tabs 02/11/24 apixaban 5 mg tablet 5 mg PO BID #180 tabs 02/21/24 empagliflozin 25 mg tablet 25 mg PO DAILY #90 tabs 02/21/24 (Jardiance) oxybutynin chloride 10 mg 10 mg PO DAILY #90 tabs 02/21/24 tablet,extended release 24 hr flash glucose sensor (FreeStyle #6 ea 03/01/24 Paige 2 Sensor kit) levothyroxine 50 mcg tablet 50 mcg PO QAM #90 tabs 07/10/24 bupropion HCl 100 mg tablet,12 hr 100 mg PO BID #180 ea 08/07/24 sustained-release (Wellbutrin SR) fluticasone 250 mcg-salmeterol 50 1 inh inhalation BID #180 ea 11/01/24 mcg/dose blistr powdr for inhalation (Wixela Inhub) Results & Data (ED) Vital Signs Vital Signs - 24 hr 11/13/24 15:05 11/13/24 16:09 11/13/24 16:32 Temperature 36.5 C Temperature Source Skin Pulse Rate 96 H Pulse Rate [Right Finger] 89 Pulse Rate from SpO2 Sensor Respiratory Rate 20 20 Respiratory Effort / Characteristics Non-Labored Spontaneous Non-Labored Respiratory Depth Normal Normal Respiratory Pattern Regular Regular Blood Pressure 109/69 Blood Pressure [Right Arm] 142/69 H Blood Pressure Mean 82 Blood Pressure Mean [Right Arm] 93 Pulse Oximetry 94 98 93 Oxygen Delivery Method Room Air Room Air Room Air Oxygen Flow Rate Sepsis Recent Fever Within 48 Hours No Sepsis New/Unexplained Change in Mental Status N/A Sepsis Action Taken by Nursing No Action Required Oxygen Flow Rate - Titration Pulse Oximetry Post Tiitration 11/13/24 16:39 11/13/24 17:00 11/13/24 17:14 Temperature Temperature Source Pulse Rate 81 87 Pulse Rate [Right Finger] Pulse Rate from SpO2 Sensor 81 Respiratory Rate 21 Respiratory Effort / Characteristics Respiratory Depth Respiratory Pattern Blood Pressure 111/63 Blood Pressure [Right Arm] Blood Pressure Mean 79 Blood Pressure Mean [Right Arm] Pulse Oximetry 87 L 96 Oxygen Delivery Method Room Air Nasal Cannula Nasal Cannula Oxygen Flow Rate 0 2 Sepsis Recent Fever Within 48 Hours Sepsis New/Unexplained Change in Mental Status Sepsis Action Taken by Nursing Oxygen Flow Rate - Titration 2 Pulse Oximetry Post Tiitration 92 11/13/24 18:01 Temperature Temperature Source Pulse Rate 74 Pulse Rate [Right Finger] Pulse Rate from SpO2 Sensor Respiratory Rate 14 Respiratory Effort / Characteristics Respiratory Depth Respiratory Pattern Blood Pressure 94/69 L Blood Pressure [Right Arm] Blood Pressure Mean 84 Blood Pressure Mean [Right Arm] Pulse Oximetry 92 Oxygen Delivery Method Nasal Cannula Oxygen Flow Rate 2 Sepsis Recent Fever Within 48 Hours Sepsis New/Unexplained Change in Mental Status Sepsis Action Taken by Nursing Oxygen Flow Rate - Titration Pulse Oximetry Post Tiitration Home Medications Current Medication List: was personally reviewed by me Laboratory Data Attestation: I reviewed the patient's lab results. 11/13/24 16:22 11/13/24 16:22 Lab Results 11/13/24 Range/Units 16:22 WBC 9.87 (4.8-10.8) K/ul RBC 4.55 (4.20-5.40) M/uL Hgb 13.4 (12.0-16.0) g/dl Hct 39.8 (37.0-47.0) % MCV 87.5 (80.0-100.0) fL MCH 29.5 (25.0-34.0) pg MCHC 33.7 (32.0-36.0) g/dL RDW Std Deviation 39.8 (36.4-46.3) fL RDW Coeff of Juan 12.5 (11.5-14.5) % Plt Count 225 (130-400) K/uL MPV 9.9 (9.4-12.4) fL Immature Gran % (Auto) 0.2 % Neut % (Auto) 78.1 % Lymph % (Auto) 9.4 % Randolph % (Auto) 11.2 % Eos % (Auto) 0.9 % Baso % (Auto) 0.2 % Neut # (Auto) 7.70 H (1.40-6.50) K/uL Lymph # (Auto) 0.93 L (1.20-3.40) K/uL Randolph # (Auto) 1.11 H (0.11-0.59) K/uL Eos # (Auto) 0.09 (0.00-0.50) K/uL Baso # (Auto) 0.02 (0.00-0.20) K/uL Immature Gran # (Auto) 0.02 (0.01-0.20) K/uL Sodium 133 L (136-145) mmol/L Potassium 3.8 (3.5-5.1) mmol/L Chloride 104 (98-107) mmol/L Carbon Dioxide 19 L (21-32) mmol/L Anion Gap 10 (3-11) BUN 18 (6-23) mg/dl Creatinine 0.99 (0.6-1.2) mg/dl Est Cr Clr Drug Dosing 47.8 ml/min eGFR 57.28 BUN/Creatinine Ratio 18.2 (10-20) Glucose 185 H (70-99(Fasting)) mg/dl Calcium 9.1 (8.6-10.3) mg/dl Total Bilirubin 0.5 (0.2-1.0) mg/dl AST 17 (13-39) U/L ALT 13 (7-52) U/L Alkaline Phosphatase 53 (34-104) U/L Troponin I High Sens 4.4 (0-14) pg/ml Total Protein 7.0 (6.0-8.3) gm/dl Albumin 4.0 (3.4-5.0) gm/dl Globulin 3.0 (2.5-4.0) gm/dl Albumin/Globulin Ratio 1.3 (0.9-2) Lipase 13 (11-82) U/L Administered Medications Discontinued Medications Sodium Chloride (Nss) 500 mls @ 999 mls/hr IV .Q31M ONE Stop: 11/13/24 16:48 Last Infusion: 11/13/24 17:00 Dose: Infused Documented By: Admin: 11/13/24 16:25 Dose: 999 mls/hr Documented By: REBEKAH Piperacillin Sod/Tazobactam Sod (Zosyn) 4.5 gm in 100 mls @ 200 mls/hr IV NOW ONE; Protocol Stop: 11/13/24 18:00 Last Admin: 11/13/24 17:55 Dose: 200 mls/hr Documented By: REBEKAH Ioversol (Optiray 320 100ml) 92 ml IV ONCE ONE Stop: 11/13/24 17:20 Last Admin: 11/13/24 17:19 Dose: 92 ml Documented By: ANGELO Ketorolac Tromethamine (Ketorolac Tromethamine 15 Mg/Ml Vial) 10 mg IV NOW STA Stop: 11/13/24 16:19 Last Admin: 11/13/24 16:28 Dose: 10 mg Documented By: REBEKAH Ondansetron HCl (Ondansetron Inj 2 Mg/Ml 2 Ml Vial) 4 mg IV NOW STA Stop: 11/13/24 16:19 Last Admin: 11/13/24 16:29 Dose: 4 mg Documented By: REBEKAH Imaging Data Attestation: I personally reviewed and interpreted this imaging study as follows: My Impression: 1 view chest x-ray was obtained in the emergency department. My interpretation is large hiatal hernia, final report below. CT of the abdomen and pelvis was obtained in the emergency department. My interpretation is signs of diverticulitis noted, final report below. Radiologist's Impression: Abdomen/Pelvis CT 11/13/24 16:18 EXAM: CT abd pelvis IV con only CLINICAL HISTORY: LLQ pain. TECHNIQUE: CT of the abdomen and pelvis was performed with intravenous contrast, with the following protocol: axial images, and reconstructed coronal and sagittal images. Contrast-enhanced images acquired in arterial and venous phases. Intravenous contrast was administered using automated injection techniques. One of the following dose reduction techniques was utilized for this exam: Automated exposure control, adjustment of the mA and/or kV according to patient size, and use of iterative reconstruction. COMPARISON: 05/24/2021 FINDINGS: Basal chest cuts show bilateral fibroatelectatic changes. Moderate sliding hiatal hernia (type I). Liver: Normal in size, shape, and density, with multiple scattered calcific foci, most likely corresponding to granulomas. No focal lesions, cysts, or masses were identified. Gallbladder and Biliary System: The gallbladder is normal in size and shape. No wall thickening, pericholecystic fluid, or gallstones were identified. Pancreas: Pancreatic head, body, and tail are visualized and appear normal in size and density. No pancreatic masses, cysts, or calcifications noted. Spleen: Normal in size, shape, and density, with multiple scattered calcific foci, most likely corresponding to granulomas.. No splenic lesions or masses identified. Small splenule. Kidneys and Adrenal Glands: Both kidneys are normal in size, shape, and position. Cortical thickness is within normal limits. No renal calculi or hydronephrosis. Adrenal glands are unremarkable. Appendix: The appendix is not visualized however no fat stranding or collection is seen in the right iliac fossa. Abdominal Aorta and Vessels: The abdominal aorta and major branches are patent without evidence of an aneurysm. Atherosclerotic calcification of the aorta and major branches is seen. Pelvis: Urinary Bladder: Normal in contour and wall thickness. No intraluminal lesions. Reproductive organs are unremarkable. Peritoneal and Retroperitoneal Structures: No free fluid or abnormal fluid collections were identified within the abdomen or pelvis. No lymphadenopathy was noted. Marked atheromatous affection of abdominal aorta, with significant ostial stenosis of celiac and SMAs. Bowel: Left iliac fossa shows focal inflammatory process, with stranding at lower descending colon, with small diverticular disease, suggestive of acute diverticulitis. Diffuse diverticular colonic disease. Linear densities at distal sigmoid colon, may be due to prior surgery. Moderate size hiatal hernia. Bones and Soft Tissues: Pelvic bones and soft tissues are unremarkable. No fractures or abnormal masses were identified. IMPRESSION: 1. Left iliac fossa shows focal inflammatory process, with stranding at lower descending colon, with small diverticular disease, suggestive of acute diverticulitis. (new finding) 2. Diffuse diverticular colonic disease. (progressed). 3. Moderate size hiatal hernia. (stable) 4. Hepatosplenic multiple scattered calcific foci, most likely corresponding to old granulomas. Electronically signed by Alin Perry 11-13-2024 6:45 PM Chest X-Ray 11/13/24 16:40 EXAM: XR chest 1V portable CLINICAL HISTORY: sob TECHNIQUE: An X-ray image of the chest is obtained in AP projection. COMPARISON: with the prior study dated 11/13/2024. FINDINGS: Pulmonary Parenchyma: Unchanged Right middle lung zone small rounded nodule noted. Bilateral hilar vascular congestion was noted. Costophrenic angles are clear. Heart and Mediastinum: Unchanged retrocardiac midline abnormal shadow, inclined to the left side with gas content suggesting large hiatus hernia. Heart is enalrged in size. No mediastinal widening or masses. No hilar or mediastinal lymphadenopathy. Bony Thorax: Bony thorax appears intact without fractures or deformities. Soft Tissues: Soft tissues overlying the chest wall are unremarkable. IMPRESSION: 1. No acute cardiopulmonary abnormality. 2. An unchanged right middle lung zone small rounded nodule was noted. 3. Unchanged cardiomegaly. 4. Unchanged hiatus hernia. Electronically signed by Alin Perry 11-13-2024 6:30 PM Discharge Plan Visit Data Chief Complaint: Abdominal Pain Stated Complaint: PAIN IN LOWER ABD ED Provider: Parga Singh Discharge Problem: Diverticulitis, Hypoxia, Acute hypotension Patient Disposition: Being Evaluated by Hospitalist Forms Stand Alone Forms: [facility] Prescriptions Prescriptions: No Action (DME) pen needle, diabetic [Novofine 32] 32 gauge x 1/4" needle See Dose Instructions .ROUTE .MEDSUPPLY Qty: 200 3RF Dose Instruction: As directed Rx Instructions: use 2 needles daily with insulin ketoconazole 2 % cream 1 applic topical BID PRN (Reason: rash) Qty: 1 0RF Rx Instructions: APPLY SPRAINGLY TO AFFECTED AREA(S) TWICE DAILY NEEDED (DME) FreeStyle Paige 2 [place] Misc See Rx Instructions .ROUTE .MEDSUPPLY Qty: 1 0RF Rx Instructions: use to monitor blood sugars 3 times a day (DME) OneTouch Ultra Test Strip See Rx Instructions .ROUTE .COMPLEX Qty: 25 5RF Dose Instruction: USE DAILY DIRECTED IF PAIGE FREESTYLE2 SENSOR FAILS Rx Instructions: USE DAILY DIRECTED IF PAIGE FREESTYLE2 SENSOR FAILS metoprolol succinate 50 mg tablet extended release 24 hr 50 mg PO HS Qty: 90 3RF losartan 50 mg tablet 50 mg PO DAILY Qty: 90 3RF oxybutynin chloride 10 mg tablet extended release 24hr 10 mg PO DAILY Qty: 90 3RF apixaban 5 mg tablet 5 mg PO BID Qty: 180 3RF Jardiance 25 mg tablet 25 mg PO DAILY Qty: 90 3RF (DME) FreeStyle Paige 2 Sensor Kit See Rx Instructions .ROUTE .MEDSUPPLY Qty: 6 3RF Rx Instructions: Change every 14 days levothyroxine 50 mcg tablet 50 mcg PO QAM Qty: 90 3RF fluticasone propion-salmeterol [Wixela Inhub] 250-50 mcg/dose blister with device 1 inh inhalation BID Qty: 180 1RF albuterol sulfate 90 mcg/actuation HFA aerosol inhaler 1 inh inhalation QID PRN (Reason: shortness of breath or wheezing) Qty: 6.7 3RF (DME) OneTouch Ultra Blue Test Strip Strip See Rx Instructions .ROUTE .MEDSUPPLY Qty: 10 0RF Dose Instruction: As directed Rx Instructions: test blood sugar 1 x daily quetiapine [Seroquel] 25 mg tablet 25 mg PO HS Qty: 90 3RF ferrous sulfate 325 mg (65 mg iron) tablet,delayed release (DR/EC) 325 mg PO QAM cyanocobalamin (vitamin B-12) 1,000 mcg tablet 1,000 mcg PO QAM polyvinyl alcohol 1.4 % drops 1 drp OP UD PRN (Reason: Dry Eyes) cholecalciferol (vitamin D3) 25 mcg (1,000 unit) capsule 1,000 unit PO DAILY bupropion HCl [Wellbutrin SR] 100 mg tablet sustained-release 12 hr 100 mg PO BID Qty: 180 1RF insulin aspart U-100 [Novolog FlexPen U-100 Insulin] 100 unit/mL (3 mL) insulin pen 2 - 4 unit subcut TID PRN (Reason: COVER LOW BSG'S) Rx Instructions: Inject 2-4 units with high carbohydrate meals, up to 3 times a day insulin degludec [Tresiba FlexTouch U-100] 100 unit/mL (3 mL) insulin pen 14 unit SQ DAILY Rx Instructions: Inject 14 units a day; TDD up to 18 units miconazole nitrate 2 % powder 1 applic topical BID PRN (Reason: Skin Irritation) triamcinolone acetonide 0.1 % cream 1 applic topical DAILY PRN (Reason: Skin Irritation) Women's 50 Plus Multivitamin 400 mcg-500 mg calcium-20 mcg Tablet 1 tab PO DAILY metformin 500 mg tablet 1,000 mg PO BID simvastatin 20 mg tablet 20 mg PO HS Referrals Referrals: Regan Salazar III, CRNP [Primary Care Provider] -
[2024-11-13] MEDS: SODIUM CHLORIDE 0.9% 500 ML IV ONE ×2 (16:25→19:13)
[2024-11-13] MEDS: KETOROLAC TROMETHAMINE 15 MG/ML VIAL IV STA (16:28)
[2024-11-13] MEDS: ONDANSETRON INJ 2 MG/ML 2 ML VIAL IV STA (16:29)
[2024-11-13 16:41] LABS: Basophils # (auto) 0.02 K/uL (0.00-0.20); Basophils % (auto) 0.2 %; Eosinophils # (auto) 0.09 K/uL (0.00-0.50); Eosinophils % (auto) 0.9 %; Hematocrit (blood only) 39.8 % (37.0-47.0); Hemoglobin 13.4 g/dl (12.0-16.0); Immature Granulocytes # (auto) 0.02 K/uL (0.01-0.20); Immature Granulocytes % (auto) 0.2 %; Lymphocytes # (auto) 0.93 K/uL (1.20-3.40); Lymphocytes % (auto) 9.4 %; Mean Corpuscular Hemoglobin 29.5 pg (25.0-34.0); Mean Corpuscular Hgb Conc 33.7 g/dL (32.0-36.0); Mean Corpuscular Volume 87.5 fL (80.0-100.0); Mean Platelet Volume 9.9 fL (9.4-12.4); Monocytes # (auto) 1.11 K/uL (0.11-0.59); Monocytes % (auto) 11.2 %; Neutrophils % (auto) 78.1 %; Platelet Count 225 K/uL (130-400); RDW Coefficient of Variation 12.5 % (11.5-14.5); RDW Standard Deviation 39.8 fL (36.4-46.3); Red Blood Count 4.55 M/uL (4.20-5.40); White Blood Count 9.87 K/ul (4.8-10.8)
[2024-11-13 16:55] LABS: Albumin Globulin Ratio 1.3 (0.9-2); BUN Creatinine Ratio 18.2 (10-20); Bilirubin,Total 0.5 mg/dl (0.2-1.0); Calcium 9.1 mg/dl (8.6-10.3); Creatinine Clr Calc Pharmacy 47.8 ml/min; Potassium 3.8 mmol/L (3.5-5.1)
[2024-11-13 17:10] LABS: Troponin I High Sensitivity 4.4 pg/ml (0-14)
[2024-11-13] MEDS: OPTIRAY 320 100ml IV ONE (17:19)
[2024-11-13] MEDS: PIPERACILLIN/TAZOBACTAM 4.5 GM/100 ML BAG IV ONE (17:55)
--- NOTE | 2024-11-13 18:30 | XRay Report ---
EXAM: XR chest 1V portable CLINICAL HISTORY: sob TECHNIQUE: An X-ray image of the chest is obtained in AP projection. COMPARISON: with the prior study dated 11/13/2024. FINDINGS: Pulmonary Parenchyma: Unchanged Right middle lung zone small rounded nodule noted. Bilateral hilar vascular congestion was noted. Costophrenic angles are clear. Heart and Mediastinum: Unchanged retrocardiac midline abnormal shadow, inclined to the left side with gas content suggesting large hiatus hernia. Heart is enalrged in size. No mediastinal widening or masses. No hilar or mediastinal lymphadenopathy. Bony Thorax: Bony thorax appears intact without fractures or deformities. Soft Tissues: Soft tissues overlying the chest wall are unremarkable. IMPRESSION: 1. No acute cardiopulmonary abnormality. 2. An unchanged right middle lung zone small rounded nodule was noted. 3. Unchanged cardiomegaly. 4. Unchanged hiatus hernia. Electronically signed by Alin Perry 11-13-2024 6:30 PM
--- NOTE | 2024-11-13 18:45 | CT Scan Report ---
EXAM: CT abd pelvis IV con only CLINICAL HISTORY: LLQ pain. TECHNIQUE: CT of the abdomen and pelvis was performed with intravenous contrast, with the following protocol: axial images, and reconstructed coronal and sagittal images. Contrast-enhanced images acquired in arterial and venous phases. Intravenous contrast was administered using automated injection techniques. One of the following dose reduction techniques was utilized for this exam: Automated exposure control, adjustment of the mA and/or kV according to patient size, and use of iterative reconstruction. COMPARISON: 05/24/2021 FINDINGS: Basal chest cuts show bilateral fibroatelectatic changes. Moderate sliding hiatal hernia (type I). Liver: Normal in size, shape, and density, with multiple scattered calcific foci, most likely corresponding to granulomas. No focal lesions, cysts, or masses were identified. Gallbladder and Biliary System: The gallbladder is normal in size and shape. No wall thickening, pericholecystic fluid, or gallstones were identified. Pancreas: Pancreatic head, body, and tail are visualized and appear normal in size and density. No pancreatic masses, cysts, or calcifications noted. Spleen: Normal in size, shape, and density, with multiple scattered calcific foci, most likely corresponding to granulomas.. No splenic lesions or masses identified. Small splenule. Kidneys and Adrenal Glands: Both kidneys are normal in size, shape, and position. Cortical thickness is within normal limits. No renal calculi or hydronephrosis. Adrenal glands are unremarkable. Appendix: The appendix is not visualized however no fat stranding or collection is seen in the right iliac fossa. Abdominal Aorta and Vessels: The abdominal aorta and major branches are patent without evidence of an aneurysm. Atherosclerotic calcification of the aorta and major branches is seen. Pelvis: Urinary Bladder: Normal in contour and wall thickness. No intraluminal lesions. Reproductive organs are unremarkable. Peritoneal and Retroperitoneal Structures: No free fluid or abnormal fluid collections were identified within the abdomen or pelvis. No lymphadenopathy was noted. Marked atheromatous affection of abdominal aorta, with significant ostial stenosis of celiac and SMAs. Bowel: Left iliac fossa shows focal inflammatory process, with stranding at lower descending colon, with small diverticular disease, suggestive of acute diverticulitis. Diffuse diverticular colonic disease. Linear densities at distal sigmoid colon, may be due to prior surgery. Moderate size hiatal hernia. Bones and Soft Tissues: Pelvic bones and soft tissues are unremarkable. No fractures or abnormal masses were identified. IMPRESSION: 1. Left iliac fossa shows focal inflammatory process, with stranding at lower descending colon, with small diverticular disease, suggestive of acute diverticulitis. (new finding) 2. Diffuse diverticular colonic disease. (progressed). 3. Moderate size hiatal hernia. (stable) 4. Hepatosplenic multiple scattered calcific foci, most likely corresponding to old granulomas. Electronically signed by Alin Perry 11-13-2024 6:45 PM
--- NOTE | 2024-11-13 19:09 | History & Physical Report ---
Date of Service November 13, 2024 Assessment & Plan (1) Diverticulitis: (2) Acute hypotension: Plan 79-year-old female PMHx CKD stage III, hypothyroidism, T2DM, HTN, and asthma presenting to ED for abdominal pain and diarrhea x 3 days. ED evaluation reveals no leukocytosis, stable H&H 13.4/39.8), sodium 133, CO2 19, glucose 185, lipase 13, troponin 4.4; CTAP reveals L iliac fossa with focal inflammatory process and stranding at lower descending colon known small diverticular disease suggestive of acute diverticulitis with diffuse diverticular colonic disease, otherwise stable findings; CXR with no acute findings but does reveal unchanged RML nodule and lung, unchanged cardiomegaly, and unchanged hiatal hernia. Provided with 1L NSS, Zosyn, Zofran, ketorolac in ED. #Diverticulitis Abdominal pain with diarrhea x 3 days. Also with diarrhea, jimenez coloration. No N/V, F/C, or blood per stool. - H&H stable on admission (13.4/39.8) no known blood per stool; CMP grossly WNL with BUN 18; LFTs WNL - CBC, BMP am - CTAP lower descending colon known small diverticular disease suggestive of acute diverticulitis with diffuse diverticular colonic disease - NPO; IVF LR @ 100 mL/hr - Hypotensive + hypoxic with 1 dose morphine- Defer further opioids unless absolutely necessary; ketorolac for pain prn - Zosyn IV q8h #Acute Hypotension- resolved Hypotensive after 1 dose morphine, lowest reading 94/69; provided with 1L NSS. During admission, SBP into 120s and patient stable. - No active bleeding to note; hemodynamically stable otherwise - Avoid morphine given reaction after 1 dose per ED provider - LR @ 100 mL/hr x 1 L #T2DM H/o DMT2, at home regimen empagliflozin, degludec 14U daily, aspart 2-4U with meals; complicated by CKD stage III without significant microalbuminuria on history - HOLD at home medications - Most recent A1C 08/2024 at 8% - SSI with target BSG range 110-140mg/dL, CF 25, carb ratio 10; basal 7U BID - BSG ACHS when eating, q6h while npo - Pharm glycemic management consult placed, appreciate assistance - adjust regimen as needed #PAF- Eliquis - Did NOT hold at admission given stable H/H, no bleeding noted - adjust as appropriate #Hypothyroidism- Levothyroxine #HTN- Metoprolol, losartan - HELD given hypotension, add back as appropriate #Dyslipidemia- Simvastatin #Depression- Wellbutrin, quetiapine #Asthma- Wixela; albuterol as needed; No O2 at baseline Dispo: Admit, med/tele - was hypotensive + hypoxic VTE prophylaxis: SCDs This document was dictated utilizing [employer]. Please excuse any grammatical errors that may be secondary to use of this software. Admission and Anticipated Discharge Date Admission Date: 11/13/2024 History of Present Illness Chief Complaint: Abdominal pain Primary Care Provider: Regan Salazar III, CRNP 79-year-old female PMHx CKD stage III, hypothyroidism, T2DM, HTN, and asthma presenting to ED for abdominal pain and diarrhea x 3 days. 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 States that she was having diarrhea as well starting that same day; states that the color of stool was light jimenez and mainly loose. Pain remained constant, described as sharp and currently a 4/10 on the pain scale. 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 Denies N/V or blood in stool. No F/C. Did have diverticulitis around 2008 requiring surgical intervention, but otherwise no prior history of since. Denies chest pain, SOB, palpitations, LUTS, numbness/tingling, headache, weakness, or additional symptoms. ED evaluation reveals no leukocytosis, stable H&H 13.4/39.8, sodium 133, CO2 19, glucose 185, lipase 13, troponin 4.4; CTAP reveals L iliac fossa with focal inflammatory process and stranding at lower descending colon known small diverticular disease suggestive of acute diverticulitis with diffuse diverticular colonic disease, otherwise stable findings; CXR with no acute findings but does reveal unchanged RML nodule and lung, unchanged cardiomegaly, and unchanged hiatal hernia. Provided with 1L NSS, Zosyn, Zofran, ketorolac in ED. Please see Dr. Mi's attestation for adjustments/additions to treatment plan. Allergies Allergy/AdvReac Type Severity Reaction Status Date / Time prednisone Allergy Severe Difficulty Verified 11/13/24 18:17 Breathing/ Rash ciprofloxacin AdvReac Intermediate Nausea and Verified 11/13/24 18:17 vomiting metronidazole AdvReac Intermediate Nausea and Verified 11/13/24 18:17 vomiting Home Medications Medication Instructions Recorded Confirmed Type cyanocobalamin (vitamin B-12) 1,000 mcg PO QAM 04/17/19 11/13/24 History 1,000 mcg tablet ferrous sulfate 325 mg (65 mg 325 mg PO QAM 04/17/19 11/13/24 History iron) tablet,delayed release Novofine 32 32 gauge x 1/4" needle #200 ea 07/07/19 09/25/24 Rx (pen needle, diabetic) ketoconazole 2 % topical cream 1 applic topical BID PRN rash #1 g 09/23/20 11/13/24 Rx polyvinyl alcohol 1.4 % eye drops 1 drp ophthalmic (eye) UD PRN Dry 06/03/21 11/13/24 History Eyes albuterol sulfate 90 mcg/actuation 1 inh inhalation QID PRN shortness 11/19/21 11/13/24 Rx aerosol inhaler of breath or wheezing #6.7 grams [employer] System Paige 2 [place] (flash #1 ea 04/22/23 09/25/24 Rx glucose scanning reader) blood sugar diagnostic #10 ea 04/26/23 09/25/24 Rx blood sugar diagnostic (OneTouch #25 strips 06/29/23 09/25/24 Rx Ultra Test strips) metoprolol succinate 50 mg 50 mg PO HS #90 tabs 11/01/23 11/13/24 Rx tablet,extended release 24 hr quetiapine 25 mg tablet (Seroquel) 25 mg PO HS #90 tabs 02/03/24 11/13/24 Rx losartan 50 mg tablet 50 mg PO DAILY #90 tabs 02/11/24 11/13/24 Rx apixaban 5 mg tablet 5 mg PO BID #180 tabs 02/21/24 11/13/24 Rx empagliflozin 25 mg tablet 25 mg PO DAILY #90 tabs 02/21/24 11/13/24 Rx (Jardiance) oxybutynin chloride 10 mg 10 mg PO DAILY #90 tabs 02/21/24 11/13/24 Rx tablet,extended release 24 hr flash glucose sensor (FreeStyle #6 ea 03/01/24 09/25/24 Rx Paige 2 Sensor kit) cholecalciferol (vitamin D3) 25 1,000 unit PO DAILY 06/19/24 11/13/24 History mcg (1,000 unit) capsule insulin aspart U-100 100 unit/mL 2 - 4 unit subcut TID PRN COVER 06/27/24 11/13/24 History (3 mL) subcutaneous pen (Novolog LOW BSG'S FlexPen U-100 Insulin aspart) insulin degludec 100 unit/mL (3 14 unit subcut DAILY 06/27/24 11/13/24 History mL) subcutaneous pen (Tresiba FlexTouch U-100 insulin) miconazole nitrate 2 % topical 1 applic topical BID PRN Skin 06/27/24 11/13/24 History powder Irritation triamcinolone acetonide 0.1 % 1 applic topical DAILY PRN Skin 06/27/24 11/13/24 History topical cream Irritation levothyroxine 50 mcg tablet 50 mcg PO QAM #90 tabs 07/10/24 11/13/24 Rx bupropion HCl 100 mg tablet,12 hr 100 mg PO BID #180 ea 08/07/24 11/13/24 Rx sustained-release (Wellbutrin SR) fluticasone 250 mcg-salmeterol 50 1 inh inhalation BID #180 ea 11/01/24 11/13/24 Rx mcg/dose blistr powdr for inhalation (Wixela Inhub) metformin 500 mg tablet 1,000 mg PO BID 11/13/24 11/13/24 History bvbrswcz-gob-bvrpa ac 400 1 tab PO DAILY 11/13/24 11/13/24 History mcg-calcium carb 500 mg-vit K1 20 mcg tablet (Women's 50 Plus Multivitamin) simvastatin 20 mg tablet 20 mg PO HS 11/13/24 11/13/24 History Past Med/Surg History Problem List Acute hypotension (Acute) Hypoxia (Acute) Diverticulitis (Acute) CKD stage 3 due to type 2 diabetes mellitus (Chronic) Edema of left lower extremity Urinary incontinence Hypothyroidism (Chronic) Retina disorder (Acute) Sensorineural hearing loss (SNHL) of both ears (Acute) Type 2 diabetes mellitus with renal complication (Chronic) Recurrent low back pain (Acute) Multiple pulmonary nodules (Acute) Microalbuminuria (Chronic) Left ventricular diastolic dysfunction (Acute) LVH (left ventricular hypertrophy) (Acute) Hypertension (Chronic) History of histoplasmosis (Acute) History of congestive heart failure (Acute) Dyslipidemia (Chronic) Diabetic nephropathy (Acute) Depression (Chronic) Controlled moderate persistent allergic asthma (Acute) Allergic rhinitis (Acute) Adult situational stress disorder (Acute) Asthma (Chronic) Medical History Uncontrolled diabetes mellitus with hyperglycemia, with long-term current use of insulin CKD stage 2 due to type 2 diabetes mellitus AF (paroxysmal atrial fibrillation) Acute kidney injury superimposed on chronic kidney disease Cellulitis of left lower extremity Enteritis Acute UTI (urinary tract infection) Weakness Vomiting Stage III chronic kidney disease Surgical History History of tooth extraction History of colectomy History of tubal ligation History of tonsillectomy Family History Mother Diabetes Grandfather Prostate cancer Denies family history of Ovarian cancer Myocardial infarction Breast cancer Colorectal cancer Social History Smoking Status: Never smoker Second Hand Exposure: Yes; Do You Dip or Chew Tobacco: No; Hx Alcohol Use: Yes Alcohol type: hard liquor Alcohol Intake Frequency: Monthly or Less Hx Substance Use: No Preferred Language: Montserratian Communication Ability: Effective Visual Impairment: No Limitations Hearing Ability: Normal Material Carrier Required: No Beliefs That Will Affect Care: None marital status: Current Living Situation: Spouse and Family Current Living Situation Comment: with son his SO, grandson and current occupational status: retired Feels Safe at Home: Yes Childhood Exposure to Second-Hand Smoke: Yes Diet: regular Diet Comment: regular Dental Care, Regularly: Yes Physical Activity Frequency: Other Physical Activity Frequency Comment: irregular exercise Seatbelt Use: always Sunscreen Use: No Do you think of yourself as: straight/heterosexual Gender Identity: Female Assistive Devices: Walker Review of Systems Review of Systems: All systems reviewed & are unremarkable except as noted in Subjective Physical Exam Physical Exam: General: No acute distress Skin: Warm and dry Head: Normocephalic, atraumatic Eyes: PERRL, conjunctivae clear, sclera non-icteric ENT: External ear and ear canal without swelling; nose atraumatic; good dentition, tongue normal appearance, pharynx normal Neck: Supple, no LAD Cardio: RRR, no M/G/R, S1 and S2 normal Resp: No respiratory distress, Lungs CTA in all lobes bilaterally, no wheezes, rales, or rhonchi; wearing O2 via NC (none at baseline). Abdomen: Soft, symmetric, slight tenderness to LLQ more-so at side but otherwise nontender; no guarding, no rebound tenderness; No masses or hepatosplenomegaly; Bowel sounds normoactive MSK: No deformities; pulses palpable and equal; no edema. Neuro: Awake, alert; CN grossly intact Psych: Appropriate mood and affect; good judgement and insight. Results & Data Results & Data Vital Signs (Past 12 Hours) Vital Signs Temp Pulse Pulse Resp BP BP Pulse Ox 11/13/24 18:01 74 14 94/69 L 92 11/13/24 17:14 87 11/13/24 17:00 81 21 111/63 96 11/13/24 16:39 87 L 11/13/24 16:32 93 11/13/24 16:09 89 20 142/69 H 98 11/13/24 15:05 36.5 C 96 H 20 109/69 94 O2 Del Method O2 Flow Rate 11/13/24 18:01 Nasal Cannula 2 11/13/24 17:14 11/13/24 17:00 Nasal Cannula 2 11/13/24 16:39 Room Air, Nasal Cannula 0 11/13/24 16:32 Room Air 11/13/24 16:09 Room Air 11/13/24 15:05 Room Air Laboratory Results 11/13/24 16:22 WBC 9.87 RBC 4.55 Hgb 13.4 Hct 39.8 MCV 87.5 MCH 29.5 MCHC 33.7 RDW Std Deviation 39.8 RDW Coeff of Juan 12.5 Plt Count 225 MPV 9.9 Immature Gran % (Auto) 0.2 Neut % (Auto) 78.1 Lymph % (Auto) 9.4 [place] % (Auto) 11.2 Eos % (Auto) 0.9 Baso % (Auto) 0.2 Neut # (Auto) 7.70 H Lymph # (Auto) 0.93 L [place] # (Auto) 1.11 H Eos # (Auto) 0.09 Baso # (Auto) 0.02 Immature Gran # (Auto) 0.02 Sodium 133 L Potassium 3.8 Chloride 104 Carbon Dioxide 19 L Anion Gap 10 BUN 18 Creatinine 0.99 Est Cr Clr Drug Dosing 47.8 eGFR 57.28 BUN/Creatinine Ratio 18.2 Glucose 185 H Calcium 9.1 Total Bilirubin 0.5 AST 17 ALT 13 Alkaline Phosphatase 53 Troponin I High Sens 4.4 Total Protein 7.0 Albumin 4.0 Globulin 3.0 Albumin/Globulin Ratio 1.3 Lipase 13 Diagnostic Findings Abdomen/Pelvis CT 11/13/24 16:18 EXAM: CT abd pelvis IV con only CLINICAL HISTORY: LLQ pain. TECHNIQUE: CT of the abdomen and pelvis was performed with intravenous contrast, with the following protocol: axial images, and reconstructed coronal and sagittal images. Contrast-enhanced images acquired in arterial and venous phases. Intravenous contrast was administered using automated injection techniques. One of the following dose reduction techniques was utilized for this exam: Automated exposure control, adjustment of the mA and/or kV according to patient size, and use of iterative reconstruction. COMPARISON: 05/24/2021 FINDINGS: Basal chest cuts show bilateral fibroatelectatic changes. Moderate sliding hiatal hernia (type I). Liver: Normal in size, shape, and density, with multiple scattered calcific foci, most likely corresponding to granulomas. No focal lesions, cysts, or masses were identified. Gallbladder and Biliary System: The gallbladder is normal in size and shape. No wall thickening, pericholecystic fluid, or gallstones were identified. Pancreas: Pancreatic head, body, and tail are visualized and appear normal in size and density. No pancreatic masses, cysts, or calcifications noted. Spleen: Normal in size, shape, and density, with multiple scattered calcific foci, most likely corresponding to granulomas.. No splenic lesions or masses identified. Small splenule. Kidneys and Adrenal Glands: Both kidneys are normal in size, shape, and position. Cortical thickness is within normal limits. No renal calculi or hydronephrosis. Adrenal glands are unremarkable. Appendix: The appendix is not visualized however no fat stranding or collection is seen in the right iliac fossa. Abdominal Aorta and Vessels: The abdominal aorta and major branches are patent without evidence of an aneurysm. Atherosclerotic calcification of the aorta and major branches is seen. Pelvis: Urinary Bladder: Normal in contour and wall thickness. No intraluminal lesions. Reproductive organs are unremarkable. Peritoneal and Retroperitoneal Structures: No free fluid or abnormal fluid collections were identified within the abdomen or pelvis. No lymphadenopathy was noted. Marked atheromatous affection of abdominal aorta, with significant ostial stenosis of celiac and SMAs. Bowel: Left iliac fossa shows focal inflammatory process, with stranding at lower descending colon, with small diverticular disease, suggestive of acute diverticulitis. Diffuse diverticular colonic disease. Linear densities at distal sigmoid colon, may be due to prior surgery. Moderate size hiatal hernia. Bones and Soft Tissues: Pelvic bones and soft tissues are unremarkable. No fractures or abnormal masses were identified. IMPRESSION: 1. Left iliac fossa shows focal inflammatory process, with stranding at lower descending colon, with small diverticular disease, suggestive of acute diverticulitis. (new finding) 2. Diffuse diverticular colonic disease. (progressed). 3. Moderate size hiatal hernia. (stable) 4. Hepatosplenic multiple scattered calcific foci, most likely corresponding to old granulomas. Electronically signed by Alin Perry 11-13-2024 6:45 PM Chest X-Ray 11/13/24 16:40 EXAM: XR chest 1V portable CLINICAL HISTORY: sob TECHNIQUE: An X-ray image of the chest is obtained in AP projection. COMPARISON: with the prior study dated 11/13/2024. FINDINGS: Pulmonary Parenchyma: Unchanged Right middle lung zone small rounded nodule noted. Bilateral hilar vascular congestion was noted. Costophrenic angles are clear. Heart and Mediastinum: Unchanged retrocardiac midline abnormal shadow, inclined to the left side with gas content suggesting large hiatus hernia. Heart is enalrged in size. No mediastinal widening or masses. No hilar or mediastinal lymphadenopathy. Bony Thorax: Bony thorax appears intact without fractures or deformities. Soft Tissues: Soft tissues overlying the chest wall are unremarkable. IMPRESSION: 1. No acute cardiopulmonary abnormality. 2. An unchanged right middle lung zone small rounded nodule was noted. 3. Unchanged cardiomegaly. 4. Unchanged hiatus hernia. Electronically signed by Alni Perry 11-13-2024 6:30 PM Medications Administered 1L NSS Piperacillin/tazobactam 4.5 g IV Ondansetron 4 mg IV Ketorolac 10 mg IV ECG Additional Comments: Sinus rhythm with PACs, possible LAE 83 bpm, CT 166, QRS 76, QT/QTc 370/439, PRT 57/-26/35 Supervising Physician Co-Signing Physician Notes Patient seen and examined, chart reviewed, case discussed with LEIGHANN Huynh and I agree with the assessment and plan as above. In brief, patient is an 79yo female with history of DM, HTN, CKD, prior diverticulitis s/p colon resection appx 2008 presenting with abdominal pain and diarrhea x 3 days. Patient with acute diverticulitis. Afebrile, HD stable and non-toxic in appearance LLQ abdominal pain with no rebound/guarding/peritonitis +S1/S2, irregular Lungs CTA Labs and images reviewed Assessment/Plan -Keep NPO for now -Continue IVF - LR at 100mL/hr -Zosyn -Continue Eliquis for atrial fibrillation -Holding antihypertensives for now given transient hypotension in the ER. BP now acceptable at 139/86 -Remainder as above PG Care Time/CCT Total # of Minutes Spent Total Time Spent with Patient: Total time spent is greater than 50% in coordination of care (as documented) at patient's floor/unit and/or counseling patient: Coding Level of Care Code 51742 INT INP/OBS CARE 3/75MIN Diagnoses Diverticulitis K57.92 Acute hypotension I95.9
[2024-11-13] MEDS ORDERED: KETOROLAC TROMETHAMINE 15 MG/ML VIAL IV PRN (20:04)
[2024-11-13] MEDS ORDERED: ALBUTEROL HFA 8 GM INHALER INH PRN (21:21)
[2024-11-13] MEDS ORDERED: PHARMACY GLYCEMIC MGMT CONSULT PRN (21:21)
[2024-11-13] MEDS ORDERED: ONDANSETRON INJ 2 MG/ML 2 ML VIAL IV PRN (21:21)
[2024-11-13] MEDS ORDERED: DEXTROSE 50% 50 ML SYRINGE IV PRN (21:21)
[2024-11-13] MEDS ORDERED: GLUCOSE 10 TAB/TUBE PO PRN (21:21)
[2024-11-13] MEDS ORDERED: CARBOHYDRATES FOR HYPOGLYCEMIA PO PRN (21:21)
[2024-11-13] MEDS ORDERED: GLUCOSE 40% GEL 15 GM TUBE PO PRN (21:21)
[2024-11-13] MEDS ORDERED: GLUCAGON FOR INJ 1 MG VIAL SQ PRN (21:21)
[2024-11-13 22:19] LABS: Appearance Urine Clear (Clear); Bacteria Urine Automated None Seen (None Seen); Bilirubin Urine Negative (Negative); Blood Urine Negative (Negative); Cast Urine Automated 0-2 /lpf (0-2); Color Urine Yellow; Epithelial Cell Urine Auto 0-2 /hpf (0-2); Glucose Urine UA 3+ (Negative); Ketones Urine Negative (Negative); Leukocyte Esterase Urine Negative (Negative); Nitrite Urine Negative (Negative); Protein Urine Trace (Negative); RBC Urine Automated 0-2 /hpf (0-2); Specific Gravity Urine > 1.045 (1.000-1.030); Urobilinogen Urine Negative (Negative)
[2024-11-14] MEDS: INSULIN ASPART PER UNIT CHARGE SC SCH ×2 (00:02→13:02)
[2024-11-14] MEDS: PIPERACILLIN/TAZOBACTAM 4.5 GM/100 ML BAG IV SCH (00:14)
[2024-11-14] MEDS: LANTUS PER UNIT CHARGE SQ SCH (00:15)
[2024-11-14] MEDS: buPROPion SR 100 MG TABCR PO SCH (00:15)
[2024-11-14] MEDS: APIXABAN 5 MG TABLET PO SCH (00:15)
[2024-11-14] MEDS: SIMVASTATIN 20 MG TAB PO SCH (00:15)
[2024-11-14] MEDS: QUEtiapine FUMARATE 25 MG TABLET PO SCH (00:15)
[2024-11-14] MEDS: LACTATED RINGER'S 1,000 ML IV SCH (00:15)
[2024-11-14] MEDS: LEVOTHYROXINE SODIUM 50 MCG TABLET PO SCH (05:53)
[2024-11-14 07:10] LABS: Hematocrit (blood only) 34.1 % (37.0-47.0); Hemoglobin 11.3 g/dl (12.0-16.0); Mean Corpuscular Hemoglobin 29.4 pg (25.0-34.0); Mean Corpuscular Hgb Conc 33.1 g/dL (32.0-36.0); Mean Corpuscular Volume 88.6 fL (80.0-100.0); Mean Platelet Volume 10.1 fL (9.4-12.4); Platelet Count 192 K/uL (130-400); RDW Coefficient of Variation 12.5 % (11.5-14.5); RDW Standard Deviation 40.5 fL (36.4-46.3); Red Blood Count 3.85 M/uL (4.20-5.40); White Blood Count 7.03 K/ul (4.8-10.8)
[2024-11-14 07:25] LABS: BUN Creatinine Ratio 14.3 (10-20); Calcium 8.7 mg/dl (8.6-10.3); Creatinine Clr Calc Pharmacy 48.3 ml/min; Potassium 3.9 mmol/L (3.5-5.1)
[2024-11-14] MEDS: FERROUS SULFATE 325 MG TAB PO SCH (09:01)
[2024-11-14] MEDS: OXYBUTYNIN CHLORIDE XL 5 MG TABCR PO SCH (09:01)
--- NOTE | 2024-11-14 09:01 | Pharmacy Report ---
Pharmacy Glycemic Short Note 2 - Date of Service November 14, 2024 - Glycemic Short BSG Results (Last 24 hours): 11/13/24 11/13/24 11/14/24 16:22 23:13 00:35 Glucose 185 H POC Glucose 122 H 105 H 11/14/24 11/14/24 11/14/24 04:47 05:56 06:05 Glucose 100 H POC Glucose 107 H 94 11/14/24 07:48 Glucose POC Glucose 99 OUTPATIENT ANTIDIABETIC REGIMEN: * Tresiba 14 units SC daily * Novolog 2-4 units SC TID prn high carbohydrate meal * Metformin 1 g PO BIDM * Empagliflozin 25 mg PO daily HbA1c: 8% (09/21/24) ASSESSMENT: * MW is an 79 year old female who presented to ED w/ prolonged nausea/diarrhea over ~1 week * Abdominal CT suggestive of acute diverticulitis, started on IV Zosyn * Received 7 units of basal insulin last evening w/ no bolus insulin * Blood sugars okay at this time (99 mg/dL this morning) * Diet now ordered - will give one-time conservative basal dose w/ lunch PLAN FOR INPATIENT GLYCEMIC CONTROL: * Hold outpatient oral diabetes medications * Basal insulin * Lantus 7 units SC daily * Reassess in AM * Bolus insulin * NovoLog per scale ACHS or Q6hrs while NPO * Goal Range: Low 110 mg/dL - High 140 mg/dL * Correction Factor: 25 mg/dL/unit * Nutritional / Prandial insulin per carb ratio of 1 unit per 10 grams CHO consumed
[2024-11-14] MEDS: FLUTICASONE/VILANTEROL 200/25MCG 14 PUFFS/INHALER INH SCH (09:02)
[2024-11-14] MEDS ORDERED: ARTIFICIAL TEARS OP PRN (09:02)
[2024-11-14] MEDS: LANTUS PER UNIT CHARGE SQ ONE (13:01)
--- NOTE | 2024-11-14 14:50 | Electrocardiogram Report ---
Test Reason : Blood Pressure : */* mmHG Vent. Rate : 83 BPM Atrial Rate : 83 BPM P-R Int : 166 ms QRS Dur : 76 ms QT Int : 374 ms P-R-T Axes : 57 -26 35 degrees QTcB Int : 439 ms Sinus rhythm with Premature atrial complexes Possible Left atrial enlargement Poor R wave progression, consider anterior MD vs. lead placement vs. LVH Abnormal ECG When compared with ECG of 24-May-2021 20:38, Premature atrial complexes are now Present QRS axis Shifted left Confirmed by Rodriguez Goyal ([id number]) on 11/14/2024 2:50:03 PM Referred By: Confirmed By: Rodriguez Goyal
--- NOTE | 2024-11-14 16:11 | Hospitalist Progress Note ---
Date of Service November 14, 2024 Assessment & Plan (1) Diverticulitis: (2) Acute hypotension: Plan 79-year-old female PMHx CKD stage III, hypothyroidism, T2DM, HTN, and asthma presenting to ED for abdominal pain and diarrhea x 3 days. #Diverticulitis Abdominal pain with diarrhea x 3 days. Also with diarrhea, jimenez coloration. No N/V, F/C, or blood per stool. -CBC w/o leukocytosis, hgb 11.3 (drop secondary to dilution) -BMP stable. -CTAP w/ lower descending colon known small diverticular disease suggestive of acute diverticulitis w/ diffuse diverticular colonic disease. -Continue Zosyn IV q8h. -Avoid further opioids given episode of hypotension & hypoxia following 1 dose of morphine. - Ketorolac for pain, max 6 doses. -Diet advanced to full liquids for dinner. Can advance to low fiber for breakfast 11/15 if patient continues to tolerate diet. #Acute Hypotension- resolved Hypotensive after 1 dose morphine, lowest reading 94/69; provided with 1L NSS. - No active bleeding to note; hemodynamically stable otherwise - Avoid morphine given reaction after 1 dose per ED provider - LR @ 100 mL/hr x 1 L - BP normotensive. #T2DM H/o DMT2, at home regimen empagliflozin, degludec 14U daily, aspart 2-4U with meals; complicated by CKD stage III without significant microalbuminuria on history - HOLD at home medications - Most recent A1C 08/2024 at 8% - Pharm glycemic management consult placed, appreciate assistance - adjust regimen as needed Chronic conditions: PAF: Eliquis/Metoprolol Hypothyroidism: Levothyroxine HTN: hold losartan, BP normotensive Dyslipidemia: simvastatin Depression: Wellbutrin, Quetiapine Asthma: Wixela, albuterol prn Code: full VTE prophylaxis: SCDs Anticipate discharge home 11/15 if patient able to tolerate diet in AM. Admission and Anticipated Discharge Date Admission Date: November 13, 2024 Subjective Patient seen and examined this morning. Patient reports 3-4/10 pain when palpating her LLQ pain but denies pain if she does not touch this region. She reports she has not had any further diarrhea since Wednesday. She denies any nausea, vomtiing, chest pain, shortness of breath. Physical Exam Constitutional: WD/WN, vitals as above Eyes: PERRL, conjunctivae normal, anicteric sclerae Respiratory: normal respiratory effort, lungs clear to auscultation Cardiovascular: RRR, no murmur, no edema Gastrointestinal (Abdomen): +tenderness in LLQ (mild). + BS, soft Psychiatric: A+Ox3, euthymic affect Results & Data Results & Data Vital Signs (Past 12 Hours) Vital Signs Temp Pulse Pulse Resp BP BP Pulse Ox 11/14/24 15:56 36.3 C L 80 18 129/80 93 11/14/24 13:52 93 H 11/14/24 10:58 36.6 C 81 16 125/69 92 11/14/24 09:00 11/14/24 08:00 36.7 C 79 14 126/74 95 11/14/24 07:16 75 O2 Del Method O2 Flow Rate 11/14/24 15:56 Room Air 11/14/24 13:52 11/14/24 10:58 Room Air 11/14/24 09:00 Room Air 11/14/24 08:00 Nasal Cannula 2 11/14/24 07:16 PG Care Time/CCT Total # of Minutes Spent Total Time Spent with Patient: Total time spent is greater than 50% in coordination of care (as documented) at patient's floor/unit and/or counseling patient: Coding Level of Care Code 94362 SUB INP/OBS CARE 2/35MIN Diagnoses Diverticulitis K57.92 Acute hypotension I95.9
[2024-11-15 07:14] VITALS: TEMP 97.9
[2024-11-15 08:08] VITALS: BP 140/82; RESP 16; O2SAT 96
[2024-11-15] MEDS: LANTUS PER UNIT CHARGE SQ SCH (09:07)
[2024-11-15 09:23] LABS: Basophils # (auto) 0.04 K/uL (0.00-0.20); Basophils % (auto) 0.7 %; Eosinophils # (auto) 0.28 K/uL (0.00-0.50); Eosinophils % (auto) 4.7 %; Hemoglobin 12.9 g/dl (12.0-16.0); Immature Granulocytes # (auto) 0.01 K/uL (0.01-0.20); Immature Granulocytes % (auto) 0.2 %; Lymphocytes # (auto) 1.49 K/uL (1.20-3.40); Lymphocytes % (auto) 25.2 %; Mean Corpuscular Hgb Conc 33.1 g/dL (32.0-36.0); Mean Corpuscular Volume 87.6 fL (80.0-100.0); Mean Platelet Volume 9.7 fL (9.4-12.4); Monocytes # (auto) 0.79 K/uL (0.11-0.59); Monocytes % (auto) 13.3 %; Neutrophils # (auto) 3.31 K/uL (1.40-6.50); Neutrophils % (auto) 55.9 %; Platelet Count 249 K/uL (130-400); RDW Coefficient of Variation 12.4 % (11.5-14.5); Red Blood Count 4.45 M/uL (4.20-5.40); White Blood Count 5.92 K/ul (4.8-10.8)
[2024-11-15 09:41] LABS: BUN Creatinine Ratio 10.3 (10-20); Calcium 9.1 mg/dl (8.6-10.3); Creatinine Clr Calc Pharmacy 44.2 ml/min; Potassium 3.9 mmol/L (3.5-5.1)
--- NOTE | 2024-11-15 09:52 | Discharge Summary ---
Discharge Summary Date of Service November 15, 2024 Principal Dx & Hospital Course #1 = Principal Diagnosis (1) Diverticulitis: (2) Acute hypotension: Plan 79-year-old female PMHx CKD stage III, hypothyroidism, T2DM, HTN, and asthma presenting to ED for abdominal pain and diarrhea x 3 days. #Diverticulitis Abdominal pain with diarrhea x 3 days. Also with diarrhea, jimenez coloration. No N/V, F/C, or blood per stool. -CBC /BMP stable -CTAP w/ lower descending colon known small diverticular disease suggestive of acute diverticulitis w/ diffuse diverticular colonic disease. -Zosyn IV q8h, transition to Augmentin BID for additional 8 days on discharge. -May use Tylenol for pain. Did not require any further pain medication over last 24 hours. -Diet advanced to low fiber prior to discharge --> advised to stay on this for 4-6 weeks -Discuss w/ PCP risks vs benefits of colonoscopy #Acute Hypotension- resolved Hypotensive after 1 dose morphine, lowest reading 94/69; provided with 1L NSS. - No active bleeding to note; hemodynamically stable otherwise - BP normotensive. -> antihypertensives resumed on discharge. #T2DM H/o DMT2, at home regimen empagliflozin, degludec 14U daily, aspart 2-4U with meals; complicated by CKD stage III without significant microalbuminuria on history - Most recent A1C 08/2024 at 8% -Resume outpatient regimen Chronic conditions: PAF: Eliquis/Metoprolol Hypothyroidism: Levothyroxine HTN: losartan, BP normotensive Dyslipidemia: simvastatin Depression: Wellbutrin, Quetiapine Asthma: Wixela, albuterol prn Patient discharged home 11/15. Admission HPI Per Admitting Provider 79-year-old female PMHx CKD stage III, hypothyroidism, T2DM, HTN, and asthma presenting to ED for abdominal pain and diarrhea x 3 days. Starting 3 days [employer], was having 10/10 abdominal pain diffusely across abdomen and then localizing to the LLQ/L flank area. States that she was having diarrhea as well starting that same day; states that the color of stool was light jimenez and mainly loose. Pain remained constant, described as sharp and currently a 4/10 on the pain scale. Was able to eat 3 days [employer], having eggs and german toast but states that she had continuous symptoms so she did not continue to eat following this. Denies N/V or blood in stool. No F/C. Did have diverticulitis around 2008 requiring surgical intervention, but otherwise no prior history of since. Denies chest pain, SOB, palpitations, LUTS, numbness/tingling, headache, weakness, or additional symptoms. ED evaluation reveals no leukocytosis, stable H&H 13.4/39.8, sodium 133, CO2 19, glucose 185, lipase 13, troponin 4.4; CTAP reveals L iliac fossa with focal inflammatory process and stranding at lower descending colon known small diverticular disease suggestive of acute diverticulitis with diffuse diverticular colonic disease, otherwise stable findings; CXR with no acute findings but does reveal unchanged RML nodule and lung, unchanged cardiomegaly, and unchanged hiatal hernia. Provided with 1L NSS, Zosyn, Zofran, ketorolac in ED. Please see Dr. Mi's attestation for adjustments/additions to treatment plan. Discharge Exam Constitutional WD/WN, vitals as above Eyes PERRL, conjunctivae normal, anicteric sclerae Respiratory breathing unlabored Cardiovascular well perfused Gastrointestinal (Abdomen) no tenderness to palpation. +BS Psychiatric A+Ox3, euthymic affect Discharge Plan Discharge Items Patient Disposition: Home - Self-Care Reason For Visit: DIVERTICULITIS Discharge Diagnosis: Diverticulitis Activity: Resume your previous activity Non-emergency contact: Primary Care Provider Call non-emergency contact if: you have any medication questions and your symptoms worsen Follow-up/Referrals: Regan Salazar III, CRNP [Primary Care Provider] - 11/23/24 11:00 am Diet: Low Fiber Addtl Attending Provider Instructions: Ms. Brock, You were recently hospitalized for abdominal pain and diarrhea. You were found to have diverticulitis and were treated with antibiotics. Please see recommendations below regarding your discharge. Please take Augmentin for the next 8 days. Your first dose at home will be this evening, 11/15. Please take with food to avoid GI upset. Please follow a low fiber diet for about 4-6 weeks to allow your bowels time to rest. Following this, your previous diet/high fiber diet may be resumed. If you experience constipation, you may take a capful of Miralax - this is a gentle laxative and should not cause you GI upset. ' You may resume the remainder of your outpatient medications. If you develop any severe abdominal pain, changes in bowel habits, nausea, vomiting please report back to the ER for further care. Sincerely, Pending Studies at Discharge: No Stand-Alone Forms: [facility], Smoking Cessation Medications and DC Order Prescriptions: New amoxicillin-pot clavulanate 875-125 mg tablet 1 tab PO BID Qty: 16 0RF Continued ketoconazole 2 % cream 1 applic topical BID PRN (Reason: rash) Qty: 1 0RF Rx Instructions: APPLY SPRAINGLY TO AFFECTED AREA(S) TWICE DAILY NEEDED metoprolol succinate 50 mg tablet extended release 24 hr 50 mg PO HS Qty: 90 3RF losartan 50 mg tablet 50 mg PO DAILY Qty: 90 3RF oxybutynin chloride 10 mg tablet extended release 24hr 10 mg PO DAILY Qty: 90 3RF apixaban 5 mg tablet 5 mg PO BID Qty: 180 3RF Jardiance 25 mg tablet 25 mg PO DAILY Qty: 90 3RF levothyroxine 50 mcg tablet 50 mcg PO QAM Qty: 90 3RF fluticasone propion-salmeterol [Wixela Inhub] 250-50 mcg/dose blister with device 1 inh inhalation BID Qty: 180 1RF albuterol sulfate 90 mcg/actuation HFA aerosol inhaler 1 inh inhalation QID PRN (Reason: shortness of breath or wheezing) Qty: 6.7 3RF quetiapine [Seroquel] 25 mg tablet 25 mg PO HS Qty: 90 3RF ferrous sulfate 325 mg (65 mg iron) tablet,delayed release (DR/EC) 325 mg PO QAM cyanocobalamin (vitamin B-12) 1,000 mcg tablet 1,000 mcg PO QAM polyvinyl alcohol 1.4 % drops 1 drp OP UD PRN (Reason: Dry Eyes) cholecalciferol (vitamin D3) 25 mcg (1,000 unit) capsule 1,000 unit PO DAILY bupropion HCl [Wellbutrin SR] 100 mg tablet sustained-release 12 hr 100 mg PO BID Qty: 180 1RF insulin aspart U-100 [Novolog FlexPen U-100 Insulin] 100 unit/mL (3 mL) insulin pen 2 - 4 unit subcut TID PRN (Reason: COVER LOW BSG'S) Rx Instructions: Inject 2-4 units with high carbohydrate meals, up to 3 times a day insulin degludec [Tresiba FlexTouch U-100] 100 unit/mL (3 mL) insulin pen 14 unit SQ DAILY Rx Instructions: Inject 14 units a day; TDD up to 18 units miconazole nitrate 2 % powder 1 applic topical BID PRN (Reason: Skin Irritation) triamcinolone acetonide 0.1 % cream 1 applic topical DAILY PRN (Reason: Skin Irritation) Women's 50 Plus Multivitamin 400 mcg-500 mg calcium-20 mcg Tablet 1 tab PO DAILY metformin 500 mg tablet 1,000 mg PO BID simvastatin 20 mg tablet 20 mg PO HS No Action (DME) pen needle, diabetic [Novofine 32] 32 gauge x 1/4" needle See Dose Instructions .ROUTE .MEDSUPPLY Qty: 200 3RF Dose Instruction: As directed Rx Instructions: use 2 needles daily with insulin (DME) FreeStyle Paige 2 Vincent Misc See Rx Instructions .ROUTE .MEDSUPPLY Qty: 1 0RF Rx Instructions: use to monitor blood sugars 3 times a day (DME) OneTouch Ultra Test Strip See Rx Instructions .ROUTE .COMPLEX Qty: 25 5RF Dose Instruction: USE DAILY DIRECTED IF PAIGE FREESTYLE2 SENSOR FAILS Rx Instructions: USE DAILY DIRECTED IF PAIGE FREESTYLE2 SENSOR FAILS (DME) FreeStyle Paige 2 Sensor Kit See Rx Instructions .ROUTE .MEDSUPPLY Qty: 6 3RF Rx Instructions: Change every 14 days (DME) OneTouch Ultra Blue Test Strip Strip See Rx Instructions .ROUTE .MEDSUPPLY Qty: 10 0RF Dose Instruction: As directed Rx Instructions: test blood sugar 1 x daily Discharge Orders: Discharge Order (Routine); Ordered 11/15/24 Ordered By: Yaritza Covarrubias Admission Data Admit Date/Time: 11/13/24 19:41 Attending Provider: Ankit Orozco Admit Provider: Mavis Mi Primary Care Provider: Regan Salazar III Other Providers: Gera So Other Interventions: Discharge Summary Assessment (RN) Last Done: 11/15/24 10:17 Hospital Stay Data Consultations 11/13/24 18:47 ED Decision to Admit Stat Diagnostic Imagining Performed 11/13/24 16:18 CT abd pelvis IV con only Stat Pending Results Patient Have Any Pending Studies at Discharge: No Discharge Instructions Given to Patient (Per Discharging Provider) Ms. Brock, You were recently hospitalized for abdominal pain and diarrhea. You were found to have diverticulitis and were treated with antibiotics. Please see recommendations below regarding your discharge. Please take Augmentin for the next 8 days. Your first dose at home will be this evening, 11/15. Please take with food to avoid GI upset. Please follow a low fiber diet for about 4-6 weeks to allow your bowels time to rest. Following this, your previous diet/high fiber diet may be resumed. If you experience constipation, you may take a capful of Miralax - this is a gentle laxative and should not cause you GI upset. ' You may resume the remainder of your outpatient medications. If you develop any severe abdominal pain, changes in bowel habits, nausea, vomiting please report back to the ER for further care. Sincerely, Total Time Total Time Spent Total Time Spent (In Minutes): 45 Total Time Includes: Examination of the Patient, Discharge Planning and Medication Reconciliation Coding Level of Care Code 25266 INP/OBS DISCH >30 MIN Diagnoses Diverticulitis K57.92 Acute hypotension I95.9
[2024-11-15 10:18] VITALS: PULSE 82
== END 2024-11-15 10:39 | disposition home or self-care (01) | DRG 392 ==
LOC: ED 14:52 → SUATTDRO 19:41 → EDINP 19:41 → 2N 21:21